=== PATIENT | female | born 1945 | race Two or more races ===

== ENCOUNTER 2016-07-24 09:09 | Day surgery (SDC) | payer OTHER ==
[~2016-07-24 09:09] MED LIST: POVIDONE-IODINE OINTMENT 10% - 28.4 GM TUBE TP ONE
[2016-07-24] MEDS ORDERED: HEPARIN NA (PORCINE) 5,000 UNITS/ML 1ML VIAL ONE ×2 (09:53→12:08)
[2016-07-24] MEDS ORDERED: LIDOCAINE HCL 1%, 10 MG/ML (20ML VIAL) ONE (09:54)
[2016-07-24] MEDS ORDERED: ROPIVACAINE HCL 0.5% 30ML VIAL ONE (11:02)
[2016-07-24] MEDS ORDERED: MIDAZOLAM HCL 2 MG/2 ML SINGLE DOSE VIAL ONE ×2 (11:04)
[2016-07-24] MEDS ORDERED: PROPOFOL 20 ML ONE ×2 (12:08→13:34)
[2016-07-24] MEDS ORDERED: LIDOCAINE HCL 2% (20ML MULTI-DOSE VIAL) NR ONE (12:09)
[2016-07-24] MEDS ORDERED: ceFAZolin SODIUM 1 GM VIAL ONE (12:17)
[2016-07-24] MEDS ORDERED: ceFAZolin SODIUM 1 GM VIAL IVPB ONE (12:20)
[2016-07-24] MEDS ORDERED: LIDOCAINE HCL 1%, 10 MG/ML (20ML VIAL) IJ ONE (12:21)
[2016-07-24] MEDS ORDERED: POVIDONE-IODINE OINTMENT 10% - 28.4 GM TUBE ONE (12:46)
[2016-07-24] MEDS ORDERED: POVIDONE-IODINE OINTMENT 10% - 28.4 GM TUBE TP ONE (14:10)
[2016-07-24] MEDS ORDERED: ONDANSETRON 4 MG/2 ML VIAL IVPUSH PRN (14:30)
--- NOTE | 2016-07-24 14:32 | OP ---
Operative Note - Note: Operative Date: 07/24/16 Pre-Operative Diagnosis: ESRD Operation: Creation of left cephalic vein fistula Post-Operative Diagnosis: Same as Pre-op Surgeon: Carlos Stafford Anesthesia: Fractional Estimated Blood Loss (mls): 50 Operative Report Dictated: Yes
--- NOTE | 2016-07-24 14:35 | HP ---
Admitting History and Physical - Admission Chief Complaint: ESRD - Past Medical History REGISTERED NURSE MATERNITY: Yes: Syncope Cardiovascular: Yes: CHF, HTN Renal/: Yes: Renal Failure Heme/Onc: Yes: Anemia Endocrine: Yes: Hypothyroidism - Smoking History Smoking history: Never smoked Have you smoked in the past 12 months: No Aproximately how many cigarettes per day: 0 - Alcohol/Substance Use Hx Alcohol Use: No - Social History ADL: Independent History of Recent Travel: No Home Medications - Allergies Allergies/Adverse Reactions: Allergies Allergy/AdvReac Type Severity Reaction Status Date / Time No Known Allergies Allergy Verified 07/24/16 10:13 - Home Medications Home Medications: Ambulatory Orders Calcium Acetate [Phoslo -] 1,334 mg PO TIDCM #60 capsule 06/03/16 Carvedilol [Coreg -] 12.5 mg PO BID #30 tablet 06/03/16 Levothyroxine [Synthroid -] 125 mcg PO DAILY@0700 #30 tablet 06/03/16 Nifedipine ER [Procardia XL -] 90 mg PO DAILY #60 tab.er.24 06/03/16 Physical Examination Vital Signs: Vital Signs Temperature 97.7 F 07/24/16 10:15 Pulse Rate 75 07/24/16 10:15 Respiratory Rate 18 07/24/16 10:15 Blood Pressure 175/82 07/24/16 10:15 O2 Sat by Pulse Oximetry (%) 98 07/24/16 10:15 Constitutional: Yes: Well Nourished Eyes: Yes: WNL HENT: Yes: WNL Neck: Yes: WNL Cardiovascular: Yes: WNL Respiratory: Yes: WNL Gastrointestinal: Yes: WNL Labs: CBC, BMP 07/24/16 09:32 Assessment/Plan ESRD 1. For avf creation today
--- NOTE | 2016-07-24 14:48 | SURG ---
Surgery Pilling Machine Operator Note Pilling Machine Operator: Zara Ziegler PA-C Date of Service: 07/24/16 Diagnosis: ESRD Procedure: Creation of left cephalic vein AV fistula I was present for the entirety of the operative procedure. For further detail, please refer to operative report. Visit type - Case Type Case Type: Scheduled Admission - New patient This patient is new to me today: Yes Date on this admission: 07/24/16
[2016-07-24 15:14] VITALS: TEMP 98.6
[2016-07-24 16:39] VITALS: BP 152/79; PULSE 78
== END 2016-07-24 16:39 | disposition home or self-care (01) ==
LOC: JASU-SURG 09:09
PROVIDERS: ATTEND Surgery Vascular Surgery
PROC: 03180ZD Bypass Left Brachial Artery to Upper Arm Vein, Open Approach (ICD-10-PCS; principal; 2016-07-24 12:00)
DX: I12.0 Hypertensive chronic kidney disease with stage 5 chronic kidney disease or end stage renal disease (principal); N18.6 End stage renal disease; Z99.2 Dependence on renal dialysis
CPT/HCPCS: 36415; 84132; 94760; J1644

== ENCOUNTER 2016-07-31 08:42 | Day surgery (SDC) | payer OTHER ==
--- NOTE | 2016-07-31 09:37 | PDOC ---
History of Present Illness - General History Source: Patient, Old Records Exam Limitations: No Limitations - History of Present Illness Initial Comments: 07/31/16 09:37 The patient is a 70-year-old woman, with a significant past medical history of hypertension, hypercholesterolemia, congestive heart failure, anemia, hypothyroidism, renal failure, chronic kidney disease, end stage renal disease ( on hemodialysis q. TRS) and colon Ca who presents to the emergency department for further evaluation of her displaced catheter. The patient had a right permacath placed in 06/21 and recent left cephalic vein fistula placed on 2016 by Vascular Surgeon, Dr. Ellyn Stafford. Patient denies any pain. She stated she was able to receive her full hemodialysis yesterday without complications. Patient woke up this morning, in her usual state of health, when she had breakfast at approximately 06:30 AM (cup of coffee with bread) and noticed that her right permacath was accidentally displaced, thus presenting to the ER. Patient denies any fever, chills, generalized weakness lightheadedness, dizziness, unsteady gait, visual changes, palpitations, headache, chest pain, abdominal pain, nausea, vomiting, diarrhea. Allergies: None Known Past Surgical History: Appendectomy. Colon Ca status post resection. Right Permacath placement (06/2016). Left cephalic vein fistula on 07/24/2016. Social History: No tobacco, ETOH and recreational drug use. Primary Care Physician: Jimbo Camara [phone] (Affiliated with [facility] ) Vascular Surgeon: Dr. Ellyn Stafford [phone] <Dasha Ho - Last Filed: 07/31/16 09:43> <Apolinar Mckeon - Last Filed: 07/31/16 10:14> - General Chief Complaint: Dialysis Shunt Problem Stated Complaint: DISPLACED CATHERER Time Seen by Provider: 07/31/16 09:00 Past History <Dasha Ho - Last Filed: 07/31/16 09:43> - Past Medical History Anemia: No Asthma: No Cancer: Yes (COLON CANCER) Cardiac Disorders: Yes CVA: No COPD: No CHF: No Dementia: No Diabetes: Yes (IDDM) Dialysis: Yes (--FRI) GI Disorders: Yes (COLON CANCER) Disorders: No HTN: Yes Hypercholesterolemia: Yes Liver Disease: No Suicide Attempt (Hx): No Seizures: No Thyroid Disease: No - Surgical History Abdominal Surgery: Yes (COLON RESECTION/ COLOSTOMY) Appendectomy: Yes Cardiac Surgery: No Cholecystectomy: Yes Lung Surgery: No Neurologic Surgery: No Orthopedic Surgery: No - Immunization History Immunization Up to Date: Yes - Psycho/Social/Smoking Cessation Hx Anxiety: No Suicidal Ideation: No Smoking Status: No Smoking History: Never smoked Have you smoked in the past 12 months: No Number of Cigarettes Smoked Daily: 0 Hx Alcohol Use: No Drug/Substance Use Hx: No Substance Use Type: None Hx Substance Use Treatment: No <Apolinar Mckeon - Last Filed: 07/31/16 10:14> - Past Medical History Allergies/Adverse Reactions: Allergies Allergy/AdvReac Type Severity Reaction Status Date / Time No Known Allergies Allergy Verified 07/31/16 08:47 Home Medications: Ambulatory Orders Calcium Acetate [Phoslo -] 1,334 mg PO TIDCM #60 capsule 06/03/16 Carvedilol [Coreg -] 12.5 mg PO BID #30 tablet 06/03/16 Levothyroxine [Synthroid -] 125 mcg PO DAILY@0700 #30 tablet 06/03/16 Nifedipine ER [Procardia XL -] 90 mg PO DAILY #60 tab.er.24 06/03/16 Review of Systems - Review of Systems Constitutional: No: Chills, Fever HEENTM: No: Throat Swelling Respiratory: No: Cough, Shortness of Breath Cardiac (ROS): No: Chest Pain, Edema ABD/GI: No: Nausea, Vomiting Integumentary: Yes: See HPI <Apolinar Mckeon - Last Filed: 07/31/16 10:14> *Physical Exam - Vital Signs Last Vital Signs Temp Pulse Resp BP Pulse Ox 98.2 F 99 H 20 188/86 98 07/31/16 08:43 07/31/16 08:43 07/31/16 08:43 07/31/16 08:43 07/31/16 08:43 - Physical Exam Comments: 07/31/16 09:38 GENERAL: The patient is awake, alert, and fully oriented, in no acute distress. HEAD: Normal with no signs of trauma. EYES: Pupils equal, round and reactive to light, extraocular movements intact, sclera anicteric, conjunctiva clear with no pallor. ENT: Ears normal, nares patent, oropharynx clear without exudates. Moist mucous membranes. NECK: Normal range of motion, supple without lymphadenopathy, JVD, or masses. LUNGS: Breath sounds equal, clear to auscultation bilaterally. No wheeze/ crackles. HEART: Regular rate and rhythm, normal S1 and S2 without murmur or rub. CHEST: There is an intact and fully dislodged right upper chest wall catheter site that is clean, dry without evidence of active bleeding, infection and foreign body ABDOMEN: Soft/nontender/nondistended. BS wnl. No guarding or rebound. No palpable masses. No hepatosplenomegaly. EXTREMITIES: Normal range of motion, no edema. No clubbing or cyanosis. No cords, erythema, or tenderness. NEUROLOGICAL: Cranial nerves II through XII grossly intact. Normal speech. PSYCH: Normal mood, normal affect. SKIN: Warm, Dry, normal turgor, no rashes or lesions noted. <Dasha Ho - Last Filed: 07/31/16 09:43> - Vital Signs Last Vital Signs Temp Pulse Resp BP Pulse Ox 98.2 F 99 H 20 188/86 98 07/31/16 08:43 07/31/16 08:43 07/31/16 08:43 07/31/16 08:43 07/31/16 08:43 <Apolinar Mckeon - Last Filed: 07/31/16 10:14> ED Treatment Course - LABORATORY CBC & Chemistry Diagram: 07/31/16 09:14 07/31/16 09:14 <Dasha Ho - Last Filed: 07/31/16 09:43> - LABORATORY CBC & Chemistry Diagram: 07/31/16 09:14 07/31/16 09:14 - RADIOLOGY Radiology Studies Ordered: Category Date Time Status CHEST PA & LAT [RAD] Stat Radiology 07/31/16 09:10 Taken <Apolinar Mckeon - Last Filed: 07/31/16 10:14> Medical Decision Making - Medical Decision Making 07/31/16 09:39 Overhead page to Vascular Surgeon, Dr. Ellyn Stafford 07/31/16 09:39 A call was placed to Vascular Surgeon, Dr. Ellyn Stafford at [phone]. Awaiting call back. <Dasha Ho - Last Filed: 07/31/16 09:43> - Medical Decision Making 07/31/16 09:34 A portion of this note was documented by scribe services under my direction. I have reviewed the details of the note, within reason, and agree with the documentation with the following case summary and management plan written by me. 70-year-old female end-stage renal disease recently started dialysis, had right permacath placed in 06/21 and now postop day 5 of left cephalic vein fistula, presents from [facility] after her right chest permacath was accidentally dislodged. Has no pain or bleeding or swelling, has no chest pain or shortness of breath. Had complete dialysis yesterday. Vitals as noted. Exam as noted. 70-year-old female with displaced right chest permacath, fistula has not yet matured. Will require placement of new permacath, Dr. Carlos Stafford consulted. Will check basic labs, though had full dialysis yesterday Chest x-ray to rule out any retained catheter segment Admit to ASU 07/31/16 10:13 Accepted for ASU by Dr. Stafford. Because she ate breakfast at 6:30 AM, cannot receive anesthesia until 2:30 PM. Pt NPO, awaiting labs. <Apolinar Mckeon - Last Filed: 07/31/16 10:14> *DC/Admit/Observation/Transfer - Attestations Scribe Attestion: 07/31/16 09:39 Documentation prepared by Dasha Ho, acting as medical sales representative for Apolinar Mckeon MD. <Dasha Ho - Last Filed: 07/31/16 09:43> - Discharge Dispostion Admit: Yes <Apolinar Mckeon - Last Filed: 07/31/16 10:14> Diagnosis at time of Disposition: Complication, dialysis catheter clot or failure Chronic kidney disease (CKD) Qualifiers: Chronic kidney disease stage: unspecified stage Qualified Code(s): N18.9 - Chronic kidney disease, unspecified - Discharge Dispostion Condition at time of disposition: Stable - Referrals Referrals: Jimbo Camara MD [Primary Care Provider] -
[2016-07-31 09:44] LABS: BASOPHIL 0.2 % (0-2.0); MCH 29.8 pg (25.7-33.7); MCHC 32.8 g/dl (32.0-36.0); MEAN PLT VOLUME 8.9 fl (7.5-11.1); NEUTROPHILS 73.2 % (42.8-82.8); PLATELET COUNT 109 K/MM3 (134-434); WHITE BLOOD COUNT 4.9 K/mm3 (4.0-10.0)
[2016-07-31 10:27] LABS: ALBUMIN 3.5 g/dl (3.4-5.0); BILIRUBIN,TOTAL 0.4 mg/dL (0.2-1.0); CALCIUM 7.9 mg/dL (8.5-10.1); CREATININE 4.5 mg/dL (0.55-1.02); TOT PROT 7.4 g/dl (6.4-8.2)
[2016-07-31 10:37] LABS: INR 1.01 (0.82-1.09); PROTHROMBIN TIME (PATIENT) 11.1 SEC (9.98-11.88)
[2016-07-31 10:39] LABS: ACTIVATED PTT 32.8 SECONDS (26.9-34.4)
[2016-07-31 11:32] VITALS: BMI 25.0
[2016-07-31] MEDS ORDERED: ceFAZolin SODIUM 1 GM VIAL IVPB ONE (11:41)
[2016-07-31] MEDS ORDERED: LIDOCAINE HCL 1%, 10 MG/ML (20ML VIAL) ONE (14:01)
--- NOTE | 2016-07-31 14:51 | OP ---
Operative Note - Note: Operative Date: 07/31/16 Pre-Operative Diagnosis: dislodged permacath Operation: Insertion of permacath Post-Operative Diagnosis: Same as Pre-op Surgeon: Carlos Stafford Anesthesia: Fractional Estimated Blood Loss (mls): 10 Operative Report Dictated: Yes
[2016-07-31 16:19] VITALS: TEMP 98.2
[2016-07-31 18:29] VITALS: BP 170/80; PULSE 88
--- NOTE | 2016-08-01 11:55 | OP ---
DATE OF OPERATION: 07/31/2016 PREOPERATIVE DIAGNOSIS: Dislodged PermCath. POSTOPERATIVE DIAGNOSIS: Dislodged PermCath. PROCEDURE: Insertion of PermCath. SURGEON: Carlos Yip DO ANESTHESIA: Fractional. BLOOD LOSS: 5 mL. INDICATIONS: The patient is a 70-year-old female who had her PermCath dislodged for her right internal jugular vein this morning at home. Her dialysis day is tomorrow, and she decided to come into the ER. The patient was then brought up to the operating room and patient was consented for the procedure understanding all risks, benefits, and alternatives and was then taken to the operating room. DESCRIPTION OF PROCEDURE: Once in the operating suite, she was placed on the operating table in supine position, and the area of the right neck and chest were prepped and draped in a sterile surgical manner. Then under ultrasound guidance, we were able to visualize the right internal jugular vein, and 10 mL of 0.5% lidocaine was injected. We then took our micropuncture needle and under guidance punctured the right internal jugular vein, and a micropuncture wire was inserted and a micropuncture sheath was inserted. We then placed a 0.035 floppy guidewire under fluoroscopy. We then injected 10 mL of 0.5% lidocaine above and below the clavicle. We then took an 11-blade and made a 1-cm incision at the puncture site. We then took a 15-blade and made a 1-cm incision below the clavicle. We then tunneled the PermCath up to the puncture site. We then went ahead and placed our breakaway sheath over the guidewire into the vein under fluoroscopy, and the cannula and guidewire were removed. The catheter was then placed inside the sheath. The sheath was broken away as the catheter was placed inside the vein. The neck of the catheter was nice and smooth. The tip of the catheter was located right outside the right atrium. We then argenis back on each port of the catheter, and there was good flow. Heparinized saline was injected. Then 2000 units of IV heparin was injected. We then took 4-0 Biosyn, and 3 simple sutures were placed at the puncture site. There was 4-0 Biosyn used there, 3-0 nylon was used in the catheter attached to the skin. Biopatch, Steri-Strips, 4x4s, and Tegaderms were placed. The patient tolerated the procedure with no complications. The patient was transferred to the PACU in stable condition where a chest x-ray will be obtained. CARLOS YIP DO [id number]
== END 2016-07-31 17:45 | disposition home or self-care (01) ==
LOC: JER 08:42 → JASUSAT 10:21
PROVIDERS: ATTEND Surgery Vascular Surgery
PROC: 02H633Z Insertion of Infusion Device into Right Atrium, Percutaneous Approach (ICD-10-PCS; 2016-07-31)
PROC: B214YZZ Fluoroscopy of Right Heart using Other Contrast (ICD-10-PCS; 2016-07-31)
PROC: 05PY03Z Removal of Infusion Device from Upper Vein, Open Approach (ICD-10-PCS; principal; 2016-07-31 14:30)
DX: T82.898A Other specified complication of vascular prosthetic devices, implants and grafts, initial encounter (principal); I12.0 Hypertensive chronic kidney disease with stage 5 chronic kidney disease or end stage renal disease; N18.5 Chronic kidney disease, stage 5; Z99.2 Dependence on renal dialysis
CPT/HCPCS: 36581; 77001; C1751; 36415; 71010-TC; 71020-TC; 76000-TC; 80053; 85025; 85610; 85730; 86850; 86870; 86900; 86901; 86902; 94760; 99284-25; J1644

== ENCOUNTER 2016-10-01 07:24 | Inpatient (IN) | payer OTHER ==
--- NOTE | 2016-10-01 07:30 | PDOC ---
History of Present Illness - History of Present Illness Initial Comments: 10/01/16 07:51 The pt is a 70 year old female with a significant PMH of hypertension, HDL, congestive heart failure, anemia, hypothyroidism, renal failure, chronic kidney disease, end stage renal disease (on hemodialysis, since May, her schedule is ) and colon Ca who presents to ED complaining of chest pain that started this morning. The pain was pressure like, constant, 8/10, mid chest, no radiation. EMS arrived and her chest pain subsided after NTG. The pt is currently complaining of mild chest pain, mild SOB. The pt was scheduled to have dialysis today. She denies palpitations, N/V, diarrhea, dysuria, fever, chills. <Catherine Allen - Last Filed: 10/01/16 07:56> <Zuleyma Tay - Last Filed: 10/01/16 08:26> - General Stated Complaint: SOB Time Seen by Provider: 10/01/16 07:29 Past History - Past Medical History Anemia: No Asthma: No Cancer: Yes (COLON CANCER) Cardiac Disorders: Yes CVA: No COPD: No CHF: No Dementia: No Diabetes: Yes (IDDM) Dialysis: Yes () GI Disorders: Yes (COLON CANCER) Disorders: No HTN: Yes Hypercholesterolemia: Yes Liver Disease: No Suicide Attempt (Hx): No Seizures: No Thyroid Disease: No - Surgical History Abdominal Surgery: Yes (COLON RESECTION/ COLOSTOMY) Appendectomy: Yes Cardiac Surgery: No Cholecystectomy: Yes Lung Surgery: No Neurologic Surgery: No Orthopedic Surgery: No - Immunization History Immunization Up to Date: Yes - Psycho/Social/Smoking Cessation Hx Anxiety: No Suicidal Ideation: No Smoking Status: No Smoking History: Never smoked Have you smoked in the past 12 months: No Number of Cigarettes Smoked Daily: 0 Hx Alcohol Use: No Drug/Substance Use Hx: No Substance Use Type: None Hx Substance Use Treatment: No <Catherine Allen - Last Filed: 10/01/16 07:56> <Zuleyma Tay - Last Filed: 10/01/16 08:26> - Past Medical History Allergies/Adverse Reactions: Allergies Allergy/AdvReac Type Severity Reaction Status Date / Time No Known Allergies Allergy Verified 10/01/16 07:55 Home Medications: Ambulatory Orders Calcium Acetate [Phoslo -] 1,334 mg PO TIDCM #60 capsule 06/03/16 Carvedilol [Coreg -] 12.5 mg PO BID #30 tablet 06/03/16 Levothyroxine [Synthroid -] 125 mcg PO DAILY@0700 #30 tablet 06/03/16 Nifedipine ER [Procardia XL -] 90 mg PO DAILY #60 tab.er.24 06/03/16 *Physical Exam - Vital Signs Last Vital Signs Temp Pulse Resp BP Pulse Ox 97.9 F 125 H 18 189/93 91 L 10/01/16 07:42 10/01/16 07:42 10/01/16 07:42 10/01/16 07:42 10/01/16 07:42 <Zuleyma Tay - Last Filed: 10/01/16 08:26> ED Treatment Course - LABORATORY CBC & Chemistry Diagram: 10/01/16 07:50 - RADIOLOGY Radiograph Interpretation: 10/01/16 08:26 RAD/CHEST X-RAY PORTABLE* Single view AP portable chest Shortness of breath Right subclavian double lumen central line in position with distal tip overlying the right atrium. Mild cardiomegaly with mild uncoiling calcified aortic arch with no mediastinal widening Cardiomegaly with vascular redistribution and interstitial edema consistent with congestive change in the lungs. Interstitial edema is seen IMPRESSION: Vascular congestive changes in the lungs identified. No large pleural effusions. No signs of pneumonia. Reported By: Meliton Valero MD 10/01/16 0822 <Zuleyma Tay - Last Filed: 10/01/16 08:26>
[2016-10-01 07:54] VITALS: BMI 24.4
--- NOTE | 2016-10-01 08:08 | PDOC ---
History of Present Illness <Zuleyma Tay - Last Filed: 10/01/16 10:07> - History of Present Illness Initial Comments: 10/01/16 08:04 Patient seen immediately on arrival, documentation done later 70-year-old female with a past medical history of hypertension, end-stage renal failure on dialysis Friday, and Friday, CHF, mitral regurg, who was in a May 2016 with congestive heart failure, requiring a nitroglycerin drip , and BiPAP Patient states that she's been having chest pain off and on all night, worse last night, less this morning, associated with shortness of breath She went to dialysis today, told them she was having chest pain, and they sent her to the emergency department, she did not have her dialysis this morning She is complaining of more severe shortness of breath She denies any recent intercurrent illness No further history is available at this time <Azeb Queen - Last Filed: 10/01/16 22:28> - General Chief Complaint: Shortness of Breath Stated Complaint: SOB Time Seen by Provider: 10/01/16 07:29 Past History <Zuleyma Tay - Last Filed: 10/01/16 10:07> - Past Medical History Anemia: No Asthma: No Cancer: Yes (COLON CANCER) Cardiac Disorders: Yes CVA: No COPD: No CHF: No Dementia: No Diabetes: Yes (IDDM) Dialysis: Yes () GI Disorders: Yes (COLON CANCER) Disorders: No HTN: Yes Hypercholesterolemia: Yes Liver Disease: No Suicide Attempt (Hx): No Seizures: No Thyroid Disease: No - Surgical History Abdominal Surgery: Yes (COLON RESECTION/ COLOSTOMY) Appendectomy: Yes Cardiac Surgery: No Cholecystectomy: Yes Lung Surgery: No Neurologic Surgery: No Orthopedic Surgery: No - Immunization History Immunization Up to Date: Yes - Psycho/Social/Smoking Cessation Hx Anxiety: No Suicidal Ideation: No Smoking Status: No Smoking History: Never smoked Have you smoked in the past 12 months: No Number of Cigarettes Smoked Daily: 0 Hx Alcohol Use: No Drug/Substance Use Hx: No Substance Use Type: None Hx Substance Use Treatment: No <Azeb Queen - Last Filed: 10/01/16 22:28> - Past Medical History Allergies/Adverse Reactions: Allergies Allergy/AdvReac Type Severity Reaction Status Date / Time No Known Allergies Allergy Verified 10/01/16 07:55 Home Medications: Ambulatory Orders Calcium Acetate [Phoslo -] 1,334 mg PO TIDCM #60 capsule 06/03/16 Carvedilol [Coreg -] 12.5 mg PO BID #30 tablet 06/03/16 Levothyroxine [Synthroid -] 125 mcg PO DAILY@0700 #30 tablet 06/03/16 Review of Systems - Review of Systems Able to Perform ROS?: No <Azeb Queen - Last Filed: 10/01/16 22:28> *Physical Exam - Vital Signs Last Vital Signs Temp Pulse Resp BP Pulse Ox 97.9 F 108 H 20 161/77 100 10/01/16 07:42 10/01/16 08:47 10/01/16 08:47 10/01/16 08:47 10/01/16 08:47 <Zuleyma Tay - Last Filed: 10/01/16 10:07> - Vital Signs Last Vital Signs Temp Pulse Resp BP Pulse Ox 97.9 F 125 H 18 189/93 91 L 10/01/16 07:42 10/01/16 07:42 10/01/16 07:42 10/01/16 07:42 10/01/16 07:42 - Physical Exam Comments: 10/01/16 08:06 Physical exam Last Vital Signs Temp Pulse Resp BP Pulse Ox 97.9 F 125 H 18 189/93 91 L 10/01/16 07:42 10/01/16 07:42 10/01/16 07:42 10/01/16 07:42 10/01/16 07:42 GENERAL: The patient is awake, alert, and fully oriented, and in no apparent distress. HEAD: Normal with no signs of trauma. EYES: sclera anicteric, conjunctiva are normal. ENT: oropharynx clear without exudates. Moist mucous membranes. NECK: Normal range of motion, supple without lymphadenopathy, JVD, or masses. LUNGS: There are rales care home up bilaterally HEART: Tachycardic, with a one out of 6 murmur ABDOMEN: Soft, nontender, normoactive bowel sounds. No guarding, no rebound. No masses appreciated. EXTREMITIES: Pedal edema NEUROLOGICAL: Cranial nerves II through XII grossly intact. Normal speech, normal gait. PSYCH: Normal mood, normal affect. SKIN: Warm, Dry, normal turgor, no rashes or lesions noted. <Azeb Queen - Last Filed: 10/01/16 22:28> ED Treatment Course - LABORATORY CBC & Chemistry Diagram: 10/01/16 07:50 10/01/16 07:50 - ADDITIONAL ORDERS Additional order review: 10/01/16 07:50 RBC 3.73 MCV 92.1 MCHC 33.0 RDW 13.6 MPV 8.8 - RADIOLOGY Radiograph Interpretation: 10/01/16 09:23 RAD/CHEST X-RAY PORTABLE* Single view AP portable chest Shortness of breath Right subclavian double lumen central line in position with distal tip overlying the right atrium. Mild cardiomegaly with mild uncoiling calcified aortic arch with no mediastinal widening Cardiomegaly with vascular redistribution and interstitial edema consistent with congestive change in the lungs. Interstitial edema is seen IMPRESSION: Vascular congestive changes in the lungs identified. No large pleural effusions. No signs of pneumonia. Reported By: Meliton Valero MD 10/01/16 08 <Zuleyma Tay - Last Filed: 10/01/16 10:07> - LABORATORY CBC & Chemistry Diagram: 10/01/16 07:50 10/01/16 07:50 - RADIOLOGY Radiology Studies Ordered: Category Date Time Status CHEST X-RAY PORTABLE* [RAD] Stat Radiology 10/01/16 08:01 Ordered <Azeb Queen - Last Filed: 10/01/16 22:28> Medical Decision Making - Medical Decision Making 10/01/16 10:[address] Bernardo at 0936, awaiting call back. Dr. Scott called back at 10:01, patient's case was discussed. <Zuleyma Tay - Last Filed: 10/01/16 10:07> - Critical Care Time Total Critical Care Time (minutes): 30 Critical Care Statement: The care of this patient involved high complexity decision making to prevent further life threatening deterioration of the patient 's condition and/or to evalute & treat vital organ system(s) failure or risk of failure. - Medical Decision Making 10/01/16 08:07 Patient with chest pain, and fluid overload, and congestive heart failure, who is due for dialysis this morning, but was sent to the emergency department due to the chest pain Will start with nitroglycerin drip Trying to find out if patient is on any blood thinners at this time before I give aspirin EKG Sinus tachycardia 121, left axis deviation -14 Normal AV and IV conduction time QTC 41 There is poor R wave across the anterior precordium There is lateral ischemic changes There are diffuse nonspecific ST-T wave abnormalities When compared to the EKG of 07/22/16 The EKG abnormalities on today's EKG are similar to the abnormalities on the prior EKG, except for the sinus tachycardia is present today 10/01/16 09:02 Chest x-ray Vascular congestive changes in the lungs No large pleural effusions or signs of pneumonia Laboratory Results - last 24 hr 10/01/16 07:50 WBC 10.1 H D RBC 3.73 Hgb 11.3 Hct 34.4 MCV 92.1 MCHC 33.0 RDW 13.6 Plt Count 112 L MPV 8.8 10/01/16 09:13 Case discussed with hospitalist-Dr Garcia -will admit ICU Remainder of labwork pending at this time, patient much more comfortable right now and chest pain gone Vital Signs - 24 hr 10/01/16 10/01/16 10/01/16 07:31 07:42 08:47 Temperature 97.9 F 97.9 F Pulse Rate 125 H Pulse Rate [ 125 H 108 H Both] Respiratory 18 18 20 Rate Blood Pressure 189/93 Blood Pressure 189/93 161/77 [Right] O2 Sat by Pulse 91 L 91 L 100 Oximetry (%) 10/01/16 09:39 Laboratory Results - last 24 hr 10/01/16 10/01/16 10/01/16 07:50 07:50 07:50 WBC 10.1 H D RBC 3.73 Hgb 11.3 Hct 34.4 MCV 92.1 MCHC 33.0 RDW 13.6 Plt Count 112 L MPV 8.8 Sodium 140 Potassium 5.9 H D Chloride 105 Carbon Dioxide 21 Anion Gap 14 BUN 68 H D Creatinine 6.6 H D Creat Clearance w eGFR 6.19 Random Glucose 148 H D Calcium 8.0 L Total Bilirubin 0.5 D AST 17 ALT 16 Alkaline Phosphatase 178 H Creatine Kinase 83 Troponin I 0.02 Total Protein 7.2 Albumin 3.5 10/01/16 10:04 Case and all results discussed with Dr. Scott-will see patient in consultation-patient is pain-free at this time on a nitroglycerin drip, and breathing better on the nitroglycerin drip K 5.9 - will be hemodialyzed urgently today <Azeb Queen - Last Filed: 10/01/16 22:28> *DC/Admit/Observation/Transfer <Zuleyma Tay - Last Filed: 10/01/16 10:07> - Discharge Dispostion Admit: Yes <Azeb Queen - Last Filed: 10/01/16 22:28> Diagnosis at time of Disposition: Acute on chronic systolic (congestive) heart failure, Acute on chronic renal failure, Chest pain, Fluid overload, Hyperkalemia - Referrals
[2016-10-01] MEDS ORDERED: NITROGLYCERIN 25MG/D5W 250ML 250 ML IVPB ONE (08:11)
[2016-10-01] MEDS ORDERED: NITROGLYCERIN 25MG/D5W 250ML 250 ML IVPB SCH (08:15)
[2016-10-01 08:23] LABS: MCH 30.4 pg (25.7-33.7); MEAN CELL VOLUME 92.1 fl (80-96); MEAN PLT VOLUME 8.8 fl (7.5-11.1); PLATELET COUNT 112 K/MM3 (134-434); RDW 13.6 % (11.6-15.6); WHITE BLOOD COUNT 10.1 K/mm3 (4.0-10.0)
[2016-10-01 09:26] LABS: ALBUMIN 3.5 g/dl (3.4-5.0); BILIRUBIN,TOTAL 0.5 mg/dL (0.2-1.0); CREATININE 6.6 mg/dL (0.55-1.02); TOT PROT 7.2 g/dl (6.4-8.2)
[2016-10-01 09:30] LABS: TROPONIN I 0.02 ng/ml (0.00-0.05)
--- NOTE | 2016-10-01 10:05 | CON.CARD ---
Consult Consult Specialty:: cardiology Reason for Consultation:: CHF; hx mod-severe systolic LV dysfunction - History of Present Illness Chief Complaint: pt was very short of breath and had chest tightness last night ; feels better now History of Present Illness: 70-year-old female with a past medical history of moderately severe systolic LV dysfunction, diastolic dysfunction (ECHO 05/2016), hypertension, end-stage renal failure on dialysis and Friday,mild-moderate mitral regurg, ? coronary angiogram at [facility] more than 5 years ago, who was in a May 2016 with congestive heart failure, requiring a nitroglycerin drip, and BiPAP. Patient states that she's been having chest pain off and on all night, worse last night, less this morning, associated with shortness of breath She went to dialysis today, told him she was having chest pain, and they sent her to the emergency department, she did not have her dialysis this morning She is complaining of more severe shortness of breath She denies any recent intercurrent illness No further history is available at this time - History Source History Provided By: Patient, Medical Record Limitations to Obtaining History: No Limitations - Past Medical History [employer] OFFICER: Yes: Syncope Cardio/Vascular: Yes: CHF, HTN Renal/: Yes: Renal Failure Endocrine: Yes: Hypothyroidism - Past Surgical History Additional Surgical History: AV graft; permacath - Alcohol/Substance Use Hx Alcohol Use: No - Smoking History Smoking history: Never smoked Have you smoked in the past 12 months: No Aproximately how many cigarettes per day: 0 - Social History ADL: Independent History of Recent Travel: No Home Medications - Allergies Allergies/Adverse Reactions: Allergies Allergy/AdvReac Type Severity Reaction Status Date / Time No Known Allergies Allergy Verified 10/01/16 07:55 - Home Medications Home Medications: Ambulatory Orders Calcium Acetate [Phoslo -] 1,334 mg PO TIDCM #60 capsule 06/03/16 Carvedilol [Coreg -] 12.5 mg PO BID #30 tablet 06/03/16 Levothyroxine [Synthroid -] 125 mcg PO DAILY@0700 #30 tablet 06/03/16 Family Disease History - Family Disease History Family History: Denies Review of Systems - Review of Systems Constitutional: reports: Weakness Eyes: reports: Blurred Vision HENT: reports: No Symptoms Neck: reports: No Symptoms Cardiovascular: reports: Chest Pain Respiratory: reports: SOB on Exertion Musculoskeletal: reports: Muscle Weakness Neurological: reports: Weakness Psychiatric: reports: Anxiety - Risk Factors Known Risk Factors: Yes: Age, Diabetes Mellitus, Hypercholesterolemia, Hypertension, Physical Inactivity, Other (ESRD-->hemodialysis) Vital Signs: Vital Signs Temperature 97.9 F 10/01/16 07:42 Pulse Rate 111 H 10/01/16 09:23 Respiratory Rate 18 10/01/16 09:23 Blood Pressure 162/87 10/01/16 09:23 O2 Sat by Pulse Oximetry (%) 100 10/01/16 09:23 Constitutional: Yes: Anxious Eyes: Yes: WNL HENT: Yes: WNL Neck: Yes: WNL Respiratory: Yes: Regular Gastrointestinal: Yes: Soft Renal/: No: Anuria Cardiovascular: Yes: Tachycardia JVD: Yes Carotid Bruit: No PMI: Displaced Heart Sounds: Yes: S1, S2, S4 Murmur: Yes: Systolic Murmur, Grade 2 Musculoskeletal: Yes: Muscle Weakness Extremities: Yes: Cool Edema: No Peripheral Pulses WNL: No Peripheral Pulses: 1+ Left Doralis Pedis, 1+ Right Dorsalis Pedis Integumentary: Yes: Incision (permacath right chest), Venous Stasis Changes Neurological: Yes: Alert, Oriented, Weakness Psychiatric: Yes: Alert, Oriented - Other Data Echo: Report Reviewed (05/2016: moderate-severely reduced LVEF; mild-moderate MR ; diastolic dysfunction) Ejection Fraction %: LVEF < 40 % Imaging - Results Chest X-ray: Image Reviewed (bilateral infiltrate and vascular congestion ( moderate);) EKG: Image Reviewed (sinus tachycardia; lateral STT changes; LVH) Problem List - Problems (1) Acute on chronic renal failure Code(s): N17.9 - ACUTE KIDNEY FAILURE, UNSPECIFIED N18.9 - CHRONIC KIDNEY DISEASE, UNSPECIFIED (2) Acute on chronic systolic (congestive) heart failure Assessment/Plan: Continue carvedilol. Unable to use ACEI, ARB, or spironolactone presently (hyperkalemia). Start hydralazine, and increase as tolerated (if BP decreases too much, would decrease or stop nifedipine). Start Imdur when off NTG drip. For hemodialysis. F/u BUn/Cr, electrolytes, volume status, daily weight. For ECHO (f/u LVEF; may require ICD if coronary artery status is first ascertained). Code(s): I50.23 - ACUTE ON CHRONIC SYSTOLIC (CONGESTIVE) HEART FAILURE (3) Chest pain Assessment/Plan: atypical presentation 1st TNI 0.02; EKG sinus tach with LVH, repolarization abnormalities. On NTG IV; start Imdur when off this agent. statin for hyperlipidemia. Coronary artery evaluation when stable (stress MIBI and/or coronary angiogram). F/u ECHO for LVEF; compare with 05/2016. f/u records of ?coronary angiogram done at [facility] ? 5+ years ago. May require ICD. Code(s): R07.9 - CHEST PAIN, UNSPECIFIED (4) Hyperkalemia Assessment/Plan: for hemodialysis; f/u electrolytes; f/u with skin pass operator. Code(s): E87.5 - HYPERKALEMIA (5) Hypertension associated with chronic kidney disease due to type 2 diabetes mellitus Code(s): E11.22 - TYPE 2 DIABETES MELLITUS W DIABETIC CHRONIC KIDNEY DISEASE I12.9 - HYPERTENSIVE CHRONIC KIDNEY DISEASE W STG 1-4/UNSP CHR KDNY N18.9 - CHRONIC KIDNEY DISEASE, UNSPECIFIED (6) Hypothyroidism Assessment/Plan: sinus tachycardia. on Synthroid; mildly elevated free T4; f/u with label tacker. Code(s): E03.9 - HYPOTHYROIDISM, UNSPECIFIED Qualifiers: Hypothyroidism type: unspecified Qualified Code(s): E03.9 - Hypothyroidism, unspecified
[2016-10-01] MEDS: NIFEdipine E.R. 90 MG TABLET (FP) PO SCH (10:39)
[2016-10-01] MEDS: CARVEDILOL 12.5 MG TABLET (FP) PO SCH ×2 (11:23→21:39)
[2016-10-01] MEDS: CALCIUM ACETATE 667 MG CAPSULE (FP) PO SCH ×2 (11:23→17:19)
[2016-10-01 11:30] LABS: URINE APPEARANCE SLCLOUDY; URINE BILIRUBIN NEGATIVE (NEGATIVE); URINE BLOOD NEGATIVE (NEGATIVE); URINE COLOR LTYELLOW; URINE GLUCOSE (UA) 1+ (NEGATIVE); URINE KETONE NEGATIVE (NEGATIVE); URINE NITRITE NEGATIVE (NEGATIVE); URINE UROBILINOGEN NEGATIVE E.U./dl (0.2-1.0)
[2016-10-01 11:32] LABS: URINE LEUK ESTERASE 3+ (NEGATIVE); URINE PROTEIN 2+ (NEGATIVE)
--- NOTE | 2016-10-01 11:32 | HP ---
CHIEF COMPLAINT: chest pain and SOB x 1 day PCP: HISTORY OF PRESENT ILLNESS: 70 year old female presents to ED complaining of SOB that started around 4 am , is constant and associated with mid sternal chest pain . Her symptoms get worse when she is walking . She presented for scheduled dialysis but was not able to complete it due to ongoing SOB and sent for further evaluation to the emergency department. No dizziness, no syncope no diaphoresis. Medical records are reviewed and reveal previous hospitalizations with same symptoms. ER course was notable for: (1) Initiation of Nitro drip which improved her symptoms. (2) (3) Recent Travel: PAST MEDICAL HISTORY: HTN Hypothyroidism CHF with severely reduced LV function Anemia History of colon cancer PAST SURGICAL HISTORY: colon resection appendectomy Social History: Smoking: Alcohol: Drugs: Family History: no history of premature CAD Allergies No Known Allergies Allergy (Verified 10/01/16 07:55) HOME MEDICATIONS: Home Medications Medication Instructions Recorded Calcium Acetate [Phoslo -] 1,334 mg PO TIDCM #60 capsule 06/03/16 Carvedilol [Coreg -] 12.5 mg PO BID #30 tablet 06/03/16 Levothyroxine [Synthroid -] 125 mcg PO DAILY@0700 #30 tablet 06/03/16 REVIEW OF SYSTEMS CONSTITUTIONAL: Absent: fever, chills, diaphoresis, generalized weakness, malaise, loss of appetite, weight change HEENT: Absent: rhinorrhea, nasal congestion, throat pain, throat swelling, difficulty swallowing, mouth swelling, ear pain, eye pain, visual changes CV and Respiratory per HPI GASTROINTESTINAL: Absent: abdominal pain, abdominal distension, nausea, vomiting, diarrhea, constipation, melena, hematochezia GENITOURINARY: positive urine output 2-3 times a day , HD TTS MUSCULOSKELETAL: Absent: myalgia, arthralgia, joint swelling, back pain, neck pain SKIN: Absent: rash, itching, pallor HEMATOLOGIC/IMMUNOLOGIC: Absent: easy bleeding, easy bruising, lymphadenopathy, frequent infections ENDOCRINE: Absent: unexplained weight gain, unexplained weight loss, heat intolerance, cold intolerance NEUROLOGIC: Absent: headache, focal weakness or paresthesias, dizziness, unsteady gait, seizure, mental status changes, bladder or bowel incontinence PSYCHIATRIC: Absent: anxiety, depression, suicidal or homicidal ideation, hallucinations. PHYSICAL EXAMINATION Vital Signs - 24 hr 03/28/17 03/28/17 09:23 10:11 Pulse Rate [ 111 H 102 H Both] Respiratory 18 18 Rate Blood Pressure 162/87 152/71 [Right] O2 Sat by Pulse 100 98 Oximetry (%) GENERAL: Awake, alert, and fully oriented, in no acute distress. HEAD: Normal with no signs of trauma. EYES: Pupils equal, round and reactive to light, extraocular movements intact, sclera anicteric, conjunctiva clear. No lid lag. EARS, NOSE, THROAT: Ears normal, nares patent, oropharynx clear without exudates. Moist mucous membranes. NECK: Normal range of motion, supple without lymphadenopathy, JVD, or masses. LUNGS: Breath sounds equal, clear to auscultation bilaterally. No wheezes, and no crackles. No accessory muscle use. HEART: Regular rate and rhythm, normal S1 and S2 without murmur, rub or gallop. ABDOMEN: Soft, nontender, not distended, normoactive bowel sounds, no guarding, no rebound, no masses. No hepatomegaly or splenomegaly. MUSCULOSKELETAL: Normal range of motion at all joints. No bony deformities or tenderness. No CVA tenderness. UPPER EXTREMITIES: 2+ pulses, warm, well-perfused. No cyanosis. No clubbing. No peripheral edema. LOWER EXTREMITIES: 2+ pulses, warm, well-perfused. No calf tenderness. No peripheral edema. NEUROLOGICAL: Cranial nerves II-XII intact. Normal speech. Normal gait. PSYCHIATRIC: Cooperative. Good eye contact. Appropriate mood and affect. SKIN: Warm, dry, normal turgor, no rashes or lesions noted, normal capillary refill. CXR shows mild b/l pulmonary vascular congestion Sinus tachycardia 121, left axis deviation Normal AV and IV conduction time QTC 41 There is poor R wave across the anterior precordium There is lateral ischemic changes There are diffuse nonspecific ST-T wave abnormalities When compared to the EKG of 07/22/16 The EKG abnormalities on today's EKG are similar to the abnormalities on the prior EKG, except for the sinus tachycardia is present today Abnormal Lab Results 10/01/16 10/01/16 10/01/16 07:50 07:50 10:57 WBC 10.1 H D Plt Count 112 L Potassium 5.9 H D BUN 68 H D Creatinine 6.6 H D Random Glucose 148 H D Calcium 8.0 L Alkaline Phosphatase 178 H B-Natriuretic Peptide 80298.64 H Urine Protein 2+ H Urine Glucose (UA) 1+ H Ur Leukocyte Esterase 3+ H ASSESSMENT/PLAN: 70 year old female with SOB , chest pain and ESRD 1. Chest pain and SOB - history of CHF , decreased LV function, evidence of elevated BNP and pulmonary vascular congestion . Improved after initiation of nitro drip . - cardiology evaluation - asa - telemetry monitoring - c/w current medication regimen - stat lasix 40 IV 2. ESRD - will need HD today 3. Hyperkalemia - will be corrected in HD 4. HTN - controlled 5. DVT PPX - heparin SC Visit type - Emergency Visit Emergency Visit: Yes ED Registration Date: 10/01/16 Care time: The patient presented to the Emergency Department on the above date and was hospitalized for further evaluation of their emergent condition. - New Patient This patient is new to me today: Yes Date on this admission: 10/01/16 - Critical Care Critical Care patient: No
--- NOTE | 2016-10-01 12:11 | CONSULT ---
Consult - text type - Consultation Consultation Note: Renal Consult for ESRD on HD with Volume Overload Thi is a 70 year old woman with PMHx of ESRD on HD (TTS), Hypertension, CHF (LV dysfunction) who presented wit chest pain that woke her from sleep and found to have CHF and hyperkalemia with K of 5.9. Pt is accompanied by her daughter who translated the interview. Pt developed CP and SOB this morning at 4am. Denies any N/V, diaphoresis. Last dialysis was Friday w/o any complication. Using permacath for dialysis currently. Denies any excessive salt intake. Reports adherence to all medications. Pt started on Nitro gtt in the ED with improvement of symptoms. PMhx: as above Allergies: NKDA Family Hx: NC Social Hx: no T/A/D ROS: as per HPI, all other pertinent ros negative Home Meds: Home Medications Medication Instructions Recorded Calcium Acetate [Phoslo -] 1,334 mg PO TIDCM #60 capsule 06/03/16 Carvedilol [Coreg -] 12.5 mg PO BID #30 tablet 06/03/16 Levothyroxine [Synthroid -] 125 mcg PO DAILY@0700 #30 tablet 06/03/16 Vital Signs Temperature 97.9 F 10/01/16 07:42 Pulse Rate 102 H 10/01/16 10:11 Respiratory Rate 18 10/01/16 10:11 Blood Pressure 152/71 10/01/16 10:11 O2 Sat by Pulse Oximetry (%) 98 10/01/16 10:11 Intake & Output 09/28/16 09/29/16 09/30/16 10/01/16 23:59 23:59 23:59 23:59 Weight 125 lb Gen: NAD on Nitro gtt HEENT: No JVD CVS: RRR Lungs:+ rales right lung base Abd: soft NT/ND Ext: NO edema Acess: Left ARM AVF, Right IJ tunneled HD catheter CBC, BMP 10/01/16 07:50 10/01/16 07:50 Current Medications Aspirin (Ecotrin -) 81 mg PO DAILY [facility] Calcium Acetate (Phoslo -) 1,334 mg PO TIDCM [facility] Last Admin: 10/01/16 11:23 Dose: 1,334 mg Carvedilol (Coreg -) 12.5 mg PO BID [facility] Last Admin: 10/01/16 11:23 Dose: 12.5 mg Heparin Sodium (Porcine) (Heparin -) 5,000 unit SQ BID [facility] Nitroglycerin/Dextrose (Nitroglycerin 25mg/D5w 250ml) 250 mls @ 6 mls/hr IVPB TITR [facility] PRN Reason: 10 MCG/MIN Last Admin: 10/01/16 08:40 Dose: 6 mls/hr Levothyroxine Sodium (Synthroid -) 125 mcg PO DAILY@0700 [facility] Nifedipine (Procardia Xl -) 90 mg PO DAILY [facility] Last Admin: 10/01/16 10:39 Dose: Not Given A/P 70 year old woman with PMHx of ESRD on HD (TTS), Hypertension, CHF (LV dysfunction) who presented wit chest pain that woke her from sleep and found to have CHF and hyperkalemia with K of 5.9. #ESRD on HD with volume overload For urgent HD today in Tele UF goal of 3-3.5L Dose all meds for intermittent HD Fluid restriction of 1.2L daily Low salt diet #Fluid Overoload/CHF UF as tolerated with HD Titrate Nitro gtt as per cardiology check ECHO #Hyperkalemia Will use low K bath with HD Renal diet #Thrombocytopenia Trend Plt counts no heparin with dialysis #r/o ACS Intial set of cardiac enzymes negative Cardiology follow up Tele Monitoring Thank you Will follow Romain Love DO
[2016-10-01 12:31] LABS: MAGNESIUM 2.7 mg/dL (1.8-2.4)
[2016-10-01 12:38] LABS: FREE T4 1.55 ng/dl (0.76-1.46); THYROID STIMULATING HORMONE 24.9 uIU/ml (0.358-3.74)
[2016-10-01 12:51] LABS: URINE MUCUS RARE; URINE RBC 3 /hpf (0-3); URINE WBC 15 /hpf (3-5)
--- NOTE | 2016-10-01 13:28 | EKG ---
Test Reason : Blood Pressure : / mmHG Vent. Rate : 121 BPM Atrial Rate : 121 BPM P-R Int : 146 ms QRS Dur : 082 ms QT Int : 332 ms P-R-T Axes : 042 -14 101 degrees QTc Int : 471 ms SINUS TACHYCARDIA LEFT VENTRICULAR HYPERTROPHY WITH REPOLARIZATION ABNORMALITY ABNORMAL ECG WHEN COMPARED WITH ECG OF 22-JUL-2016 10:38, VENT. RATE HAS INCREASED BY 41 BPM Confirmed by PRATIBHA NASH MD ([id number]) on 10/01/2016 1:27:29 PM Referred By: Confirmed By:PRATIBHA NASH MD
[2016-10-01] MEDS: hydrALAZINE HCL 10 MG TABLET PO SCH (21:39)
[2016-10-01] MEDS: HEPARIN NA (PORCINE) 5,000 UNITS/ML 1ML VIAL SQ SCH (21:39)
[2016-10-01 22:56] LABS: CHOLESTEROL 155 mg/dL (50-200); LDL CHOLESTEROL (ONLY SJRH) 88 mg/dL (5-100)
[2016-10-02] MEDS: LEVOTHYROXINE NA 125 MCG TABLET (FP) PO SCH (05:59)
[2016-10-02] MEDS: hydrALAZINE HCL 10 MG TABLET PO SCH ×3 (05:59→21:47)
[2016-10-02 06:50] LABS: BASOPHIL 0.2 % (0-2.0); EOSINOPHIL 0.9 % (0-4.5); MCH 29.8 pg (25.7-33.7); MEAN CELL VOLUME 90.4 fl (80-96); MEAN PLT VOLUME 8.9 fl (7.5-11.1); NEUTROPHILS 75.3 % (42.8-82.8); PLATELET COUNT 113 K/MM3 (134-434); RDW 13.5 % (11.6-15.6); WHITE BLOOD COUNT 5.5 K/mm3 (4.0-10.0)
[2016-10-02 07:09] LABS: ALBUMIN 3.2 g/dl (3.4-5.0); CALCIUM 7.9 mg/dL (8.5-10.1); CREATININE 3.8 mg/dL (0.55-1.02)
[2016-10-02 07:10] LABS: BILIRUBIN,TOTAL 0.8 mg/dL (0.2-1.0); TOT PROT 6.7 g/dl (6.4-8.2)
[2016-10-02] MEDS: CALCIUM ACETATE 667 MG CAPSULE (FP) PO SCH ×3 (08:15→18:15)
[2016-10-02] MEDS: HEPARIN NA (PORCINE) 5,000 UNITS/ML 1ML VIAL SQ SCH ×2 (09:30→21:47)
[2016-10-02] MEDS: CARVEDILOL 12.5 MG TABLET (FP) PO SCH ×2 (09:30→21:46)
[2016-10-02] MEDS: ASPIRIN COATED 81 MG TABLET.EC PO SCH (09:30)
[2016-10-02] MEDS: NIFEdipine E.R. 90 MG TABLET (FP) PO SCH (09:30)
--- NOTE | 2016-10-02 10:59 | PN ---
Progress Note, Physician History of Present Illness: 70-year-old female with a past medical history of moderately severe systolic LV dysfunction, diastolic dysfunction (ECHO 05/2016), hypertension, end-stage renal failure on dialysis and Friday,mild-moderate mitral regurg, ? coronary angiogram at [facility] more than 5 years ago, who was in a May 2016 with congestive heart failure, requiring a nitroglycerin drip, and BiPAP. Patient states that she's been having chest pain off and on all night, worse last night, less this morning, associated with shortness of breath She went to dialysis today, told him she was having chest pain, and they sent her to the emergency department, she did not have her dialysis this morning She is complaining of more severe shortness of breath She denies any recent intercurrent illness No further history is available at this time - Current Medication List Current Medications: Active Medications Aspirin (Ecotrin -) 81 mg PO DAILY [facility] Last Admin: 10/02/16 09:30 Dose: 81 mg Calcium Acetate (Phoslo -) 1,334 mg PO TIDCM [facility] Last Admin: 10/02/16 08:15 Dose: 1,334 mg Carvedilol (Coreg -) 12.5 mg PO BID [facility] Last Admin: 10/02/16 09:30 Dose: 12.5 mg Heparin Sodium (Porcine) (Heparin -) 5,000 unit SQ BID [facility] Last Admin: 10/02/16 09:30 Dose: 5,000 unit Hydralazine HCl (Apresoline -) 10 mg PO TID [facility] Last Admin: 10/02/16 05:59 Dose: 10 mg Isosorbide Dinitrate (Isordil -) 20 mg PO TID [facility] Levothyroxine Sodium (Synthroid -) 125 mcg PO DAILY@0700 [facility] Last Admin: 10/02/16 05:59 Dose: 125 mcg Nifedipine (Procardia Xl -) 90 mg PO DAILY [facility] Last Admin: 10/02/16 09:30 Dose: 90 mg - Objective Vital Signs: Vital Signs Temperature 97.9 F 10/02/16 06:00 Pulse Rate 80 10/02/16 06:00 Respiratory Rate 20 10/02/16 06:00 Blood Pressure 141/70 10/02/16 06:00 O2 Sat by Pulse Oximetry (%) 96 10/01/16 21:00 Eyes: Yes: WNL, Conjunctiva Clear, EOM Intact HENT: Yes: WNL, Atraumatic, Normocephalic Neck: Yes: WNL, Supple, Trachea Midline Cardiovascular: Yes: WNL, Regular Rate and Rhythm Respiratory: Yes: WNL, Regular, CTA Bilaterally Gastrointestinal: Yes: WNL, Normal Bowel Sounds Genitourinary: Yes: WNL Musculoskeletal: Yes: WNL Extremities: Yes: WNL Edema: No Integumentary: Yes: WNL Neurological: Yes: WNL, Alert, Oriented ...Motor Strength: WNL Psychiatric: Yes: WNL Labs: CBC, BMP 10/02/16 05:35 10/02/16 05:35 Assessment/Plan Problems (1) Acute on chronic renal failure Code(s): N17.9 - ACUTE KIDNEY FAILURE, UNSPECIFIED N18.9 - CHRONIC KIDNEY DISEASE, UNSPECIFIED (2) Acute on chronic systolic (congestive) heart failure Assessment/Plan: Continue carvedilol. Unable to use ACEI, ARB, or spironolactone presently (hyperkalemia). Start hydralazine, and increase as tolerated (if BP decreases too much, would decrease or stop nifedipine). Start Imdur For hemodialysis. F/u BUn/Cr, electrolytes, volume status, daily weight. For ECHO (f/u LVEF; may require ICD if coronary artery status is first ascertained). Code(s): I50.23 - ACUTE ON CHRONIC SYSTOLIC (CONGESTIVE) HEART FAILURE (3) Chest pain Assessment/Plan: atypical presentation 1st TNI 0.02; EKG sinus tach with LVH, repolarization abnormalities. On NTG IV; start Imdur when off this agent. statin for hyperlipidemia. Coronary artery evaluation when stable (stress MIBI and/or coronary angiogram). F/u ECHO for LVEF; compare with 05/2016. f/u records of ?coronary angiogram done at [facility] ? 5+ years ago. May require ICD. Code(s): R07.9 - CHEST PAIN, UNSPECIFIED (4) Hyperkalemia Assessment/Plan: for hemodialysis; f/u electrolytes; f/u with regional hr manager. Code(s): E87.5 - HYPERKALEMIA (5) Hypertension associated with chronic kidney disease due to type 2 diabetes mellitus Code(s): E11.22 - TYPE 2 DIABETES MELLITUS W DIABETIC CHRONIC KIDNEY DISEASE I12.9 - HYPERTENSIVE CHRONIC KIDNEY DISEASE W STG 1-4/UNSP CHR KDNY N18.9 - CHRONIC KIDNEY DISEASE, UNSPECIFIED (6) Hypothyroidism Assessment/Plan: sinus tachycardia. on Synthroid; mildly elevated free T4; f/u with supervisor wire rope fabrication. Code(s): E03.9 - HYPOTHYROIDISM, UNSPECIFIED Qualifiers: Hypothyroidism type: unspecified Qualified Code(s): E03.9 - Hypothyroidism, unspecified
[2016-10-02] MEDS: ISOSORBIDE DINITRATE 20 MG TABLET (FP) PO SCH ×2 (13:05→22:30)
--- NOTE | 2016-10-02 13:50 | PN ---
Teaching Attending Note Name of Resident: Carlee Gaspar ATTENDING PHYSICIAN STATEMENT I saw and evaluated the patient. I reviewed the resident's note and discussed the case with the resident. I agree with the resident's findings and plan as documented. SUBJECTIVE: seen and evaluated at the bedside OBJECTIVE: laying flat in no respiratory distress, very comfortable ASSESSMENT AND PLAN: 70 year old woman with HTN, Hypothyroidism, Chronic systolic and diastolic CHF, History of colon cancer admitted for pulmonary edema Pulm Edema -pt laying flat in no respiratory distress, very comfortable after dialysis last nigh -lungs completely clear on exam -discontinued NTG drip -resident discussed case with Cardiology attending and plan is for stress test but cardio attending waiting for cath report from outside hospital -cont HD as per renal attending
--- NOTE | 2016-10-02 16:18 | PN ---
Progress Note (short form) - Note Progress Note: Renal follow up for ESRD/Volume Overload Pt seen and examined at the bedside no sob or chest pain today s/p HD yesterday Vital Signs Temperature 98 F 10/02/16 10:00 Pulse Rate 76 10/02/16 10:00 Respiratory Rate 18 10/02/16 10:00 Blood Pressure 130/64 10/02/16 10:00 O2 Sat by Pulse Oximetry (%) 98 10/02/16 09:00 Intake & Output 09/29/16 09/30/16 10/01/16 10/02/16 23:59 23:59 23:59 23:59 Intake Total 446 272 Balance 446 272 Weight 125 lb 118 lb 6 oz Gen: NAD, laying flat in bed CVS: RRR Lungs: CTA Abd: soft NT/ND Ext: NO edema Acess: Left ARM AVF, Right IJ tunneled HD catheter CBC, BMP 10/02/16 05:35 10/02/16 05:35 Current Medications Aspirin (Ecotrin -) [address] [facility] Last Admin: 10/02/16 09:30 Dose: 81 mg Calcium Acetate (Phoslo -) 1,[address] [facility] Last Admin: 10/02/16 11:52 Dose: 1,334 mg Carvedilol (Coreg -) 12.[address] [facility] Last Admin: 10/02/16 09:30 Dose: 12.5 mg Heparin Sodium (Porcine) (Heparin -) 5,[address] [facility] Last Admin: 10/02/16 09:30 Dose: 5,000 unit Hydralazine HCl (Apresoline -) [address] [facility] Last Admin: 10/02/16 13:06 Dose: 10 mg Isosorbide Dinitrate (Isordil -) [address] [facility] Last Admin: 10/02/16 13:05 Dose: 20 mg Levothyroxine Sodium (Synthroid -) 125 mcg PO DAILY@0700 [facility] Last Admin: 10/02/16 05:59 Dose: 125 mcg Nifedipine (Procardia Xl -) [address] [facility] Last Admin: 10/02/16 09:30 Dose: 90 mg A/P 70 year old woman with PMHx of ESRD on HD (TTS), Hypertension, CHF (LV dysfunction) who presented wit chest pain that woke her from sleep and found to have CHF and hyperkalemia with K of 5.9. #ESRD on HD with volume overload volume status improved s/p dialysis yesterday no indication for HD today next treatment planned for tomorrow #Fluid Overoload/CHF/Chest pain Cardiology follow up Romain Love DO
--- NOTE | 2016-10-02 17:05 | PN ---
Physical Exam: SUBJECTIVE: Patient seen and examined OBJECTIVE: Vital Signs Period Temp Pulse Resp BP Sys/Tran Pulse Ox Last 24 Hr 97.6 F-98.8 F 74-95 18-20 126-155/54-87 96-98 GENERAL: The patient is awake, alert, and fully oriented, in no acute distress. HEAD: Normal with no signs of trauma. EYES: PERRL, extraocular movements intact, sclera anicteric, conjunctiva clear. No ptosis. ENT: Ears normal, nares patent, oropharynx clear without exudates, moist mucous membranes. NECK: Trachea midline, full range of motion, supple. LUNGS: Breath sounds equal, clear to auscultation bilaterally, no wheezes, no crackles, no accessory muscle use. HEART: Regular rate and rhythm, S1, S2 without murmur, rub or gallop. ABDOMEN: Soft, nontender, nondistended, normoactive bowel sounds, no guarding, no rebound, no hepatosplenomegaly, no masses. EXTREMITIES: 2+ pulses, warm, well-perfused, no edema. NEUROLOGICAL: Cranial nerves II through XII grossly intact. Normal speech, gait not observed. PSYCH: Normal mood, normal affect. SKIN: Warm, dry, normal turgor, no rashes or lesions noted Laboratory Results - last 24 hr 10/01/16 10/02/16 10/02/16 21:30 05:35 05:35 WBC 5.5 D RBC 3.40 L Hgb 10.1 L D Hct 30.8 L MCV 90.4 MCHC 33.0 RDW 13.5 Plt Count 113 L MPV 8.9 Neutrophils % 75.3 Lymphocytes % 12.9 Monocytes % 10.7 H Eosinophils % 0.9 Basophils % 0.2 Sodium 144 Potassium 4.4 D Chloride 102 Carbon Dioxide 33 H D Anion Gap 9 BUN 25 H D Creatinine 3.8 H D Creat Clearance w eGFR 11.71 Random Glucose 97 D Calcium 7.9 L Total Bilirubin 0.8 D AST 14 L ALT 12 D Alkaline Phosphatase 154 H Total Protein 6.7 Albumin 3.2 L Triglycerides 106 Cholesterol 155 Total LDL Cholesterol 88 HDL Cholesterol 47 Active Medications Generic Name Dose Route Start Last Admin Trade Name Freq PRN Reason Stop Dose Admin Aspirin 81 mg 10/02/16 10:00 10/02/16 09:30 Ecotrin - PO 81 mg DAILY FABIO Administration Calcium Acetate 1,334 mg 10/01/16 12:00 10/02/16 11:52 Phoslo - PO 1,334 mg TIDCM FABIO Administration Carvedilol 12.5 mg 10/01/16 10:00 10/02/16 09:30 Coreg - PO 12.5 mg BID FABIO Administration Heparin Sodium (Porcine) 5,000 unit 10/01/16 22:00 10/02/16 09:30 Heparin - SQ 5,000 unit BID FABIO Administration Hydralazine HCl 10 mg 10/01/16 22:00 10/02/16 13:06 Apresoline - PO 10 mg TID FABIO Administration Isosorbide Dinitrate 20 mg 10/02/16 14:00 10/02/16 13:05 Isordil - PO 20 mg TID FABIO Administration Levothyroxine Sodium 125 mcg 10/02/16 07:00 10/02/16 05:59 Synthroid - PO 125 mcg DAILY@0700 FABIO Administration Nifedipine 90 mg 10/01/16 10:00 10/02/16 09:30 Procardia Xl - PO 90 mg DAILY FABIO Administration ASSESSMENT/PLAN: 70 year old female with a PMH of HTN, CHF severe left ventricle dysfunction, ESRD (HD TTS), who presented with chest pain and sob that awoke her form sleep. CXR showing b/l infiltrates, patient admitted for acute exacerbation for CHF. #shortness of breath secondary to Acute exacerbation of chronic CHF - -condition improved s/p HD -continue carvedilol and hydralazine # Atypical chest pain -troponin trending down -Patient off NTG drip ; started on isordil 20mg po tid -call out to [facility] for records, waiting for fax -echo pending -stress test as per cardio #HTN: -cont home meds #ESRD on HD -last HD on friday -bmp #hypothyroid: -levthyroxine 125mcg po daily -TSH elevated 24.9; t41.59; do not want to increase syntroid to much to cause palpitations due to current state FEN: Fluids: none Electrolytes: wnl Diet: renal NPO after midnight if gets stress VTE prohylaxis: heparin Disposition: as per cardio for cardiac stress or not Visit type - Emergency Visit Emergency Visit: Yes ED Registration Date: 03/28/17 Care time: The patient presented to the Emergency Department on the above date and was hospitalized for further evaluation of their emergent condition. - New Patient This patient is new to me today: Yes Date on this admission: 10/02/16 - Critical Care Critical Care patient: No
[2016-10-03] MEDS: ISOSORBIDE DINITRATE 20 MG TABLET (FP) PO SCH ×3 (06:03→18:25)
[2016-10-03] MEDS: hydrALAZINE HCL 10 MG TABLET PO SCH ×3 (06:03→18:25)
[2016-10-03] MEDS: LEVOTHYROXINE NA 125 MCG TABLET (FP) PO SCH (06:04)
[2016-10-03] MEDS: CALCIUM ACETATE 667 MG CAPSULE (FP) PO SCH ×3 (08:01→18:17)
[2016-10-03 08:09] LABS: CREATININE 5.5 mg/dL (0.55-1.02)
[2016-10-03] MEDS: ASPIRIN COATED 81 MG TABLET.EC PO SCH ×2 (10:00→18:24)
[2016-10-03] MEDS: NIFEdipine E.R. 90 MG TABLET (FP) PO SCH ×2 (10:00→18:24)
[2016-10-03] MEDS: HEPARIN NA (PORCINE) 5,000 UNITS/ML 1ML VIAL SQ SCH (10:00)
[2016-10-03] MEDS: CARVEDILOL 12.5 MG TABLET (FP) PO SCH (10:00)
[2016-10-03] MEDS ORDERED: DIPYRIDAMOLE 50 MG/10 ML VIAL IVPB ONE (12:01)
--- NOTE | 2016-10-03 12:11 | PN ---
Physical Exam: SUBJECTIVE: Patient seen and examined no chest pain. 2 episodes of watery diarrhea, non bloody. Denies, [place], n, v, abdominal pain, fever, palpiations, sob. OBJECTIVE: Vital Signs Period Temp Pulse Resp BP Sys/Tran Pulse Ox Last 24 Hr 97.6 F-98.8 F 71-82 18-20 113-134/58-70 98 GENERAL: The patient is awake, alert, and fully oriented, in no acute distress. HEAD: Normal with no signs of trauma. EYES: PERRL, extraocular movements intact, sclera anicteric, conjunctiva clear. No ptosis. ENT: Ears normal, nares patent, oropharynx clear without exudates, moist mucous membranes. NECK: Trachea midline, full range of motion, supple. LUNGS: Breath sounds equal, clear to auscultation bilaterally, no wheezes, no crackles, no accessory muscle use. HEART: Regular rate and rhythm, S1, S2 without murmur, rub or gallop. ABDOMEN: Soft, nontender, nondistended, normoactive bowel sounds, no guarding, no rebound, no hepatosplenomegaly, no masses. EXTREMITIES: 2+ pulses, warm, well-perfused, no edema. NEUROLOGICAL: Cranial nerves II through XII grossly intact. Normal speech, gait not observed. PSYCH: Normal mood, normal affect. SKIN: Warm, dry, normal turgor, no rashes or lesions noted Laboratory Results - last 24 hr 10/03/16 05:10 Sodium 136 Potassium 4.9 Chloride 97 L Carbon Dioxide 28 Anion Gap 11 BUN 41 H D Creatinine 5.5 H D Random Glucose 84 Calcium 8.0 L Active Medications Generic Name Dose Route Start Last Admin Trade Name Rayq PRN Reason Stop Dose Admin Aspirin 81 mg 10/02/16 10:00 10/02/16 09:30 Ecotrin - PO 81 mg DAILY FABIO Administration Calcium Acetate 1,334 mg 10/01/16 12:00 10/03/16 08:01 Phoslo - PO Not Given TIDCM FABIO Carvedilol 12.5 mg 10/01/16 10:00 10/02/16 21:46 Coreg - PO 12.5 mg BID FABIO Administration Heparin Sodium (Porcine) 5,000 unit 10/01/16 22:00 10/02/16 21:47 Heparin - SQ 5,000 unit BID FABIO Administration Hydralazine HCl 10 mg 10/01/16 22:00 10/03/16 06:03 Apresoline - PO Not Given TID FABIO Isosorbide Dinitrate 20 mg 10/02/16 14:00 10/03/16 06:03 Isordil - PO Not Given TID [facility] Levothyroxine Sodium 125 mcg 10/02/16 07:00 10/03/16 06:04 Synthroid - PO Not Given DAILY@0700 [facility] Nifedipine 90 mg 10/01/16 10:00 10/02/16 09:30 Procardia Xl - PO 90 mg DAILY FABIO Administration ASSESSMENT/PLAN: 70 year old female with a PMH of HTN, CHF severe left ventricle dysfunction, ESRD (HD TTS), who presented with chest pain and sob that awoke her form sleep. CXR showing b/l infiltrates, patient admitted for acute exacerbation for CHF. #diarrhea: -send for c diff if diarrhea persistent #shortness of breath secondary to Acute exacerbation of chronic CHF -condition improved s/p HD # Atypical chest pain -troponin trending down -Patient off NTG drip ; started on isordil 20mg po tid -call out to [facility] for records, waiting for fax -echo showing mild to mod global hypokinesis; lv systolic fx mod reduced -stress test today no ischemia; LVEF 39% with global hypokinesis -speak to nephrology about starting and nolvia-i for cardio protection; AE is increased K , although she is on HD this can be closely monitored -continue carvedilol and hydralazine -start Lipitor 40mg qd -f/u with cardiology as outpatient #HTN: -cont home meds #ESRD on HD -HD today -bmp #hypothyroid: -levthyroxine 125mcg po daily -TSH elevated 24.9; t41.59; do not want to increase synthroid to much to cause palpitations due to current state and increased HR on admission -check free t3 FEN: Fluids: none Electrolytes: wnl Diet: renal diet VTE prohylaxis: heparin Disposition:HD; Visit type - Emergency Visit Emergency Visit: Yes ED Registration Date: 10/01/16 Care time: The patient presented to the Emergency Department on the above date and was hospitalized for further evaluation of their emergent condition. - New Patient This patient is new to me today: No - Critical Care Critical Care patient: No
[2016-10-03] MEDS ORDERED: DEXTROSE 5% IVPB ONE (14:45)
[2016-10-03] MEDS ORDERED: WATER IVPB ONE (14:45)
[2016-10-03] MEDS ORDERED: DIPYRIDAMOLE STRESS TEST IVPB ONE (14:45)
[2016-10-03] MEDS ORDERED: ATORVASTATIN CA 40 MG TABLET (FP) PO ONE (14:55)
[2016-10-03 14:57] LABS: MEAN CELL VOLUME 90.8 fl (80-96); MEAN PLT VOLUME 9.4 fl (7.5-11.1); PLATELET COUNT 130 K/MM3 (134-434); RDW 13.3 % (11.6-15.6); WHITE BLOOD COUNT 3.9 K/mm3 (4.0-10.0)
--- NOTE | 2016-10-03 14:58 | PN ---
Progress Note, Physician History of Present Illness: 70-year-old female with a past medical history of moderately severe systolic LV dysfunction, diastolic dysfunction (ECHO 05/2016), hypertension, end-stage renal failure on dialysis and Friday,mild-moderate mitral regurg, ? coronary angiogram at [facility] more than 5 years ago, who was in a May 2016 with congestive heart failure, requiring a nitroglycerin drip, and BiPAP. Patient states that she's been having chest pain off and on all night, worse last night, less this morning, associated with shortness of breath She went to dialysis today, told him she was having chest pain, and they sent her to the emergency department, she did not have her dialysis this morning She is complaining of more severe shortness of breath She denies any recent intercurrent illness No further history is available at this time - Current Medication List Current Medications: Active Medications Aspirin (Ecotrin -) 81 mg PO DAILY [facility] Last Admin: 10/03/16 10:00 Dose: Not Given Calcium Acetate (Phoslo -) 1,334 mg PO TIDCM [facility] Last Admin: 10/03/16 12:38 Dose: Not Given Carvedilol (Coreg -) 12.5 mg PO BID [facility] Last Admin: 10/03/16 10:00 Dose: Not Given Heparin Sodium (Porcine) (Heparin -) 5,000 unit SQ BID [facility] Last Admin: 10/03/16 10:00 Dose: Not Given Hydralazine HCl (Apresoline -) 10 mg PO TID [facility] Last Admin: 10/03/16 06:03 Dose: Not Given Isosorbide Dinitrate (Isordil -) 20 mg PO TID [facility] Last Admin: 10/03/16 06:03 Dose: Not Given Levothyroxine Sodium (Synthroid -) 125 mcg PO DAILY@0700 [facility] Last Admin: 10/03/16 06:04 Dose: Not Given Nifedipine (Procardia Xl -) 90 mg PO DAILY [facility] Last Admin: 10/03/16 10:00 Dose: Not Given - Objective Vital Signs: Vital Signs Temperature 98.0 F 10/03/16 13:55 Pulse Rate 73 10/03/16 14:30 Respiratory Rate 18 10/03/16 14:30 Blood Pressure 160/78 10/03/16 14:30 O2 Sat by Pulse Oximetry (%) 98 10/03/16 09:00 Labs: CBC, BMP 10/02/16 05:35 10/03/16 05:10 Problem List - Problems (1) Acute on chronic renal failure Code(s): N17.9 - ACUTE KIDNEY FAILURE, UNSPECIFIED N18.9 - CHRONIC KIDNEY DISEASE, UNSPECIFIED (2) Acute on chronic systolic (congestive) heart failure Assessment/Plan: Continue carvedilol. Unable to use ACEI, ARB, or spironolactone presently (hyperkalemia), unless cleared by dental assistant for, eg starting low-dose lisinopril. Start hydralazine, and increase as tolerated (if BP decreases too much, would decrease or stop nifedipine). Started Imdur. For hemodialysis after stress MIBI today. F/u BUn/Cr, electrolytes, volume status, daily weight. Code(s): I50.23 - ACUTE ON CHRONIC SYSTOLIC (CONGESTIVE) HEART FAILURE (3) Chest pain Assessment/Plan: Stress Persantine MIBI: no myocardial ischemia; reduced LVEF 39%. Start statin (LDL cholesterol 88 mg/dL). From a cardiac standpoint, pt may be followed as an oupatient. Code(s): R07.9 - CHEST PAIN, UNSPECIFIED (4) Hyperkalemia Assessment/Plan: for hemodialysis; f/u electrolytes; f/u with dental assistant. Code(s): E87.5 - HYPERKALEMIA (5) Hypertension associated with chronic kidney disease due to type 2 diabetes mellitus Code(s): E11.22 - TYPE 2 DIABETES MELLITUS W DIABETIC CHRONIC KIDNEY DISEASE I12.9 - HYPERTENSIVE CHRONIC KIDNEY DISEASE W STG 1-4/UNSP CHR KDNY N18.9 - CHRONIC KIDNEY DISEASE, UNSPECIFIED (6) Hypothyroidism Assessment/Plan: sinus tachycardia. on Synthroid; mildly elevated free T4; f/u with senior net c developer. Code(s): E03.9 - HYPOTHYROIDISM, UNSPECIFIED Qualifiers: Hypothyroidism type: unspecified Qualified Code(s): E03.9 - Hypothyroidism, unspecified
[2016-10-03 15:25] LABS: ALBUMIN 3.4 g/dl (3.4-5.0); CALCIUM 8.2 mg/dL (8.5-10.1); CREATININE 6.2 mg/dL (0.55-1.02)
[2016-10-03 15:44] LABS: BILIRUBIN,TOTAL 0.7 mg/dL (0.2-1.0)
[2016-10-03] MEDS ORDERED: VALSARTAN 40 MG TABLET (FP) PO SCH (17:30)
[2016-10-03 18:16] VITALS: BP 148/77; PULSE 95; TEMP 98.1
[2016-10-04 00:10] LABS: HEP B SURFACE AB Reactive (.)
[2016-10-04] MEDS ORDERED: ATORVASTATIN CA 40 MG TABLET (FP) PO SCH (22:00)
--- NOTE | 2016-10-05 07:35 | DS ---
Physical Exam: SUBJECTIVE: Patient seen and examined, no chest pain, denies sob, leg swelling. OBJECTIVE: PHYSICAL EXAM GENERAL: The patient is awake, alert, and fully oriented, in no acute distress. HEAD: Normal with no signs of trauma. EYES: PERRL, extraocular movements intact, sclera anicteric, conjunctiva clear. ENT: Ears normal, nares patent, oropharynx clear without exudates, moist mucous membranes. NECK: Trachea midline, full range of motion, supple. LUNGS: Breath sounds equal, clear to auscultation bilaterally, no wheezes, no crackles, no accessory muscle use. HEART: Regular rate and rhythm, S1, S2 without murmur, rub or gallop. ABDOMEN: Soft, nontender, nondistended, normoactive bowel sounds, no guarding, no rebound, no hepatosplenomegaly, no masses. EXTREMITIES: 2+ pulses, warm, well-perfused, no edema. NEUROLOGICAL: Cranial nerves II through XII grossly intact. Normal speech, gait not observed. PSYCH: Normal mood, normal affect. SKIN: Warm, dry, normal turgor, no rashes or lesions noted. LABS Laboratory Results - last 24 hr 10/03/16 15:15 Free T3 3.2 HOSPITAL COURSE: Date of Admission:10/01/16 Date of Discharge: 10/05/16 70 year old female with a PMH of HTN, CHF severe left ventricle dysfunction, ESRD (HD TTS), who presented with chest pain and sob that awoke her from sleep. CXR showing b/l infiltrates, patient admitted for acute exacerbation for CHF. # Atypical chest pain/ r/o ACS: stress test negative for ischemia -troponin trend down -started on NTG drip ; switched to isordil 20mg po tid -echo showing mild to mod global hypokinesis; lv systolic fx mod reduced -MIBI stress today no ischemia; LVEF 39% with global hypokinesis -continue carvedilol and hydralazine -start Lipitor 40mg qd -f/u with cardiology as outpatient I spoke with nephrology about starting an nolvia/arb for cardio protective purposes ; they suggested arb because it has a better effect compared to nolvia when patient on hemodialysis. Start diovan 40mg po daily; follow up k levels with HD. I also received records from [place] from 10/22/2011 Procedure: left heart cath, coronary angiography Conclusion: normal coronaries; no aortic stenosis,, LVEDP normal #shortness of breath secondary to Acute exacerbation of chronic CHF: resolved after HD #HTN: -cont home meds #ESRD on HD -HD today -bmp #hypothyroid: -levthyroxine 125mcg po daily -TSH elevated 24.9; t41.59; do not want to increase synthroid to much to cause palpitations due to current state and increased HR on admission -check free t3 #diarrhea: resolved -send for c diff if diarrhea persistent Minutes to complete discharge: 35 Discharge Summary Reason For Visit: CUTE CHRONIC RENAL FAILURE,CHEST PAIN Condition: Stable - Instructions Diet, Activity, Other Instructions: Discharge Home resume renal diet Resume home activity Continue dialysis Friday, and Friday Follow up with your Primary care physician Follow up with clerk cashier Dr Scott within 1 week Follow up with Renal, Dr Love within 1 week Referrals: Jimbo Camara MD [Primary Care Provider] - 1 Week Johnnie Scott MD [Staff Physician] - 1 Week Romain Love MD [Staff Physician] - 1 Week Disposition: HOME - Home Medications Comprehensive Discharge Medication List: Ambulatory Orders Calcium Acetate [Phoslo -] 1,334 mg PO TIDCM #60 capsule 06/03/16 Carvedilol [Coreg -] 12.5 mg PO BID #30 tablet 06/03/16 Levothyroxine [Synthroid -] 125 mcg PO DAILY@0700 #30 tablet 06/03/16 Aspirin Coated [Ecotrin -] 81 mg PO DAILY #30 tab 10/03/16 Atorvastatin Ca [Lipitor] 40 mg PO HS #30 tablet 10/03/16 Isosorbide Dinitrate [Isordil -] 20 mg PO TID #90 tablet 10/03/16 Nifedipine ER [Procardia XL -] 90 mg PO DAILY #30 tab 10/03/16 Valsartan [Diovan] 40 mg PO DAILY #30 tablet 10/03/16 This patient is new to me today: No Emergency Visit: Yes ED Registration Date: 10/01/16 Care time: The patient presented to the Emergency Department on the above date and was hospitalized for further evaluation of their emergent condition. Critical Care patient: No - Discharge Referral Referred to [facility] No
== END 2016-10-03 19:26 | disposition home or self-care (01) | DRG 291 ==
LOC: JER 07:24 → JERBED 09:21 → J4W 15:23
PROVIDERS: ADMIT Internal Medicine; ATTEND Internal Medicine
PROC: 5A1D60Z (ICD-10-PCS; principal; 2016-10-01)
DX: I13.2 Hypertensive heart and chronic kidney disease with heart failure and with stage 5 chronic kidney disease, or end stage renal disease (principal); N18.6 End stage renal disease; I50.23 Acute on chronic systolic (congestive) heart failure; N17.9 Acute kidney failure, unspecified; E11.22 Type 2 diabetes mellitus with diabetic chronic kidney disease; N18.9 Chronic kidney disease, unspecified; E87.5 Hyperkalemia; E03.9 Hypothyroidism, unspecified; D64.9 Anemia, unspecified; E87.79 Other fluid overload; D69.6 Thrombocytopenia, unspecified; Z99.2 Dependence on renal dialysis; A08.8 Other specified intestinal infections
CPT/HCPCS: 36415; 71010-TC; 78452-TC; 80048; 80053; 80061; 81003; 81015; 82550; 83721; 83735; 83880; 84100; 84439; 84443; 84481; 84484; 85025; 85027; 86704; 86706; 86708; 87340; 93005; 93010; 93017; 93306-TC; 99285-25; A9502; J1245; J1644

== ENCOUNTER 2016-10-11 07:51 | Day surgery (SDC) | payer OTHER ==
[2016-10-10 12:59] VITALS: BMI 24.4
--- NOTE | 2016-10-11 08:56 | EKG ---
Test Reason : Blood Pressure : / mmHG Vent. Rate : 094 BPM Atrial Rate : 094 BPM P-R Int : 144 ms QRS Dur : 080 ms QT Int : 384 ms P-R-T Axes : 055 -14 103 degrees QTc Int : 480 ms NORMAL SINUS RHYTHM POSSIBLE LEFT ATRIAL ENLARGEMENT LEFT VENTRICULAR HYPERTROPHY NONSPECIFIC T WAVE ABNORMALITY PROLONGED QT ABNORMAL ECG WHEN COMPARED WITH ECG OF 01-OCT-2016 07:31, T WAVE INVERSION MORE EVIDENT IN ANTEROLATERAL LEADS Confirmed by KASI WAKEFIELD MD ([id number]) on 10/11/2016 8:56:12 AM Referred By: Carlos Stafford Confirmed By:KASI WAKEFIELD MD
[2016-10-11] MEDS ORDERED: MIDAZOLAM HCL 2 MG/2 ML SINGLE DOSE VIAL ONE (14:44)
[2016-10-11] MEDS ORDERED: ceFAZolin SODIUM 1 GM VIAL ONE (14:55)
[2016-10-11] MEDS ORDERED: LIDOCAINE HCL/PF 2% SDV 5ML VIAL ONE (14:58)
[2016-10-11] MEDS ORDERED: PROPOFOL 20 ML ONE (14:58)
[2016-10-11] MEDS ORDERED: ceFAZolin SODIUM 1 GM VIAL IVPB ONE (15:05)
--- NOTE | 2016-10-11 15:28 | OP ---
Operative Note - Note: Operative Date: 10/11/16 Pre-Operative Diagnosis: Stenosis left avf Operation: Venogram, venoplasty left avf Post-Operative Diagnosis: Same as Pre-op Surgeon: Carlos Stafford Anesthesia: Fractional Estimated Blood Loss (mls): 10 Operative Report Dictated: Yes
--- NOTE | 2016-10-11 15:30 | HP ---
Admitting History and Physical - Admission Chief Complaint: stenosis left avf - Past Medical History RECORD LABEL INTERNSHIP: Yes: Syncope Cardiovascular: Yes: CHF, HTN Renal/: Yes: Renal Failure Heme/Onc: Yes: Anemia Endocrine: Yes: Hypothyroidism - Smoking History Smoking history: Never smoked Have you smoked in the past 12 months: No Aproximately how many cigarettes per day: 0 - Alcohol/Substance Use Hx Alcohol Use: No - Social History ADL: Independent History of Recent Travel: No Home Medications - Allergies Allergies/Adverse Reactions: Allergies Allergy/AdvReac Type Severity Reaction Status Date / Time No Known Allergies Allergy Verified 10/11/16 10:50 - Home Medications Home Medications: Ambulatory Orders Calcium Acetate [Phoslo -] 1,334 mg PO TIDCM #60 capsule 06/03/16 Carvedilol [Coreg -] 12.5 mg PO BID #30 tablet 06/03/16 Levothyroxine [Synthroid -] 125 mcg PO DAILY@0700 #30 tablet 06/03/16 Aspirin Coated [Ecotrin -] 81 mg PO DAILY #30 tab 10/03/16 Atorvastatin Ca [Lipitor] 40 mg PO HS #30 tablet 10/03/16 Isosorbide Dinitrate [Isordil -] 20 mg PO TID #90 tablet 10/03/16 Nifedipine ER [Procardia XL -] 90 mg PO DAILY #30 tab 10/03/16 Valsartan [Diovan] 40 mg PO DAILY #30 tablet 10/03/16 Physical Examination Vital Signs: Vital Signs Temperature 98 F 10/11/16 10:44 Pulse Rate 98 H 10/11/16 10:44 Respiratory Rate 18 10/11/16 10:44 Blood Pressure 144/65 10/11/16 10:44 O2 Sat by Pulse Oximetry (%) 98 10/11/16 10:57 Constitutional: Yes: Well Nourished Eyes: Yes: WNL HENT: Yes: WNL Neck: Yes: WNL Cardiovascular: Yes: WNL Respiratory: Yes: WNL Gastrointestinal: Yes: WNL Labs: CBC, BMP 10/11/16 08:10 Assessment/Plan Stenosis left avf 1. For avf venogram, venoplasty today
[2016-10-11] MEDS ORDERED: ACETAMINOPHEN 325 MG TABLET (FP) PO PRN (15:36)
[2016-10-11] MEDS ORDERED: oxyCODONE HCL 5 MG TABLET PO PRN (15:36)
[2016-10-11] MEDS ORDERED: ONDANSETRON 4 MG/2 ML VIAL IVPUSH PRN (15:36)
[2016-10-11] MEDS ORDERED: SODIUM CHLORIDE 1,000 ML IV SCH (15:45)
[2016-10-11 17:09] VITALS: TEMP 98.6
[2016-10-11 18:39] VITALS: BP 136/65; PULSE 99
--- NOTE | 2016-10-12 07:11 | OP ---
DATE OF OPERATION: 10/11/2016 PREOPERATIVE DIAGNOSIS: Stenosis left atrioventricular fistula. POSTOPERATIVE DIAGNOSIS: Stenosis left atrioventricular fistula. PROCEDURE: Venogram, venoplasty left atrioventricular fistula. INDICATIONS: The patient is a 70-year-old female who comes in to our office last week with a left AV fistula that was created back in July. The fistula looks immature and stenotic by feel and venogram. The patient was consented for the procedure understanding all risks, benefits, and alternatives then taken to the operating room. DESCRIPTION OF PROCEDURE: Once in the operating room, she was laid on the operating table in supine manner. The area of the left arm was prepped and draped in a sterile, surgical manner. We then injected 10 mL of lidocaine 1% over the proximal AV fistula above the anastomosis. We then took our micropuncture needle and punctured the AV fistula. Micropuncture wire inserted. Micropuncture sheath was inserted, and a traditional, short 6-Georgian sheath was inserted. We then gave the patient 3000 units of IV heparin. We then shot a venogram of the left AV fistula showing that the fistula was patent but had a stenotic area of about 80% in the body of the fistula. We then went ahead and placed a 0.20 floppy guidewire up into the central veins. We then used a 10 x 4 balloon and performed venoplasty of the entire AV fistula from the upper arm to the anastomosis. At this point, completion venogram showed that the fistula was patent, central veins were patent. There was no recoil in the vein. At this point, we took a 4-0 Biosyn stitch, and a [id number] stitch was placed around the sheath, and the sheath was pulled. The area was wet and dried, and Dermabond was placed. The patient tolerated the procedure with no complication. The patient was transferred to the PACU in stable condition. SOM YIP DO [id number]
== END 2016-10-11 18:35 | disposition home or self-care (01) ==
LOC: JASU-SURG 07:51
PROVIDERS: ATTEND Surgery Vascular Surgery
PROC: 057Y3ZZ Dilation of Upper Vein, Percutaneous Approach (ICD-10-PCS; principal; 2016-10-11 14:30)
DX: T82.858A Stenosis of other vascular prosthetic devices, implants and grafts, initial encounter (principal); I12.0 Hypertensive chronic kidney disease with stage 5 chronic kidney disease or end stage renal disease; N18.6 End stage renal disease; Z99.2 Dependence on renal dialysis
CPT/HCPCS: 36415; 76000-TC; 84132; 93005; 93010; 94760; J1644

== ENCOUNTER 2017-05-02 06:36 | Day surgery (SDC) | payer OTHER ==
[2017-04-29 12:30] VITALS: BMI 24.4
[2017-05-02] MEDS ORDERED: HEPARIN NA (PORCINE) 5,000 UNITS/ML 1ML VIAL ONE (07:47)
[2017-05-02] MEDS ORDERED: LIDOCAINE HCL 1%, 10 MG/ML (20ML VIAL) ONE (07:47)
[2017-05-02] MEDS ORDERED: PROPOFOL 20 ML ONE ×3 (09:11)
[2017-05-02] MEDS ORDERED: MIDAZOLAM HCL 2 MG/2 ML SINGLE DOSE VIAL ONE (09:11)
[2017-05-02] MEDS ORDERED: ceFAZolin SODIUM 1 GM VIAL ONE (09:25)
[2017-05-02] MEDS ORDERED: ceFAZolin SODIUM 1 GM VIAL IVPB ONE (09:30)
--- NOTE | 2017-05-02 10:03 | OP ---
Operative Note - Note: Operative Date: 05/02/17 Pre-Operative Diagnosis: left avf stenosis Operation: Venogram, venoplasty left avf Post-Operative Diagnosis: Same as Pre-op Surgeon: Carlos Stafford Anesthesia: Fractional Estimated Blood Loss (mls): 10 Operative Report Dictated: Yes
--- NOTE | 2017-05-02 10:06 | HP ---
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 Cardiovascular: Yes: CHF, HTN Renal/: Yes: Renal Failure Heme/Onc: Yes: Anemia Endocrine: Yes: Hypothyroidism - Smoking History Smoking history: Never smoked Have you smoked in the past 12 months: No Aproximately how many cigarettes per day: 0 - Alcohol/Substance Use Hx Alcohol Use: No - Social History ADL: Independent History of Recent Travel: No Home Medications - Allergies Allergies/Adverse Reactions: Allergies Allergy/AdvReac Type Severity Reaction Status Date / Time No Known Allergies Allergy Verified 05/02/17 07:12 - Home Medications Home Medications: Ambulatory Orders Calcium Acetate [Phoslo -] 1,334 mg PO TIDCM #60 capsule 06/03/16 Carvedilol [Coreg -] 12.5 mg PO BID #30 tablet 06/03/16 Levothyroxine [Synthroid -] 125 mcg PO DAILY@0700 #30 tablet 06/03/16 Isosorbide Dinitrate [Isordil -] 20 mg PO TID #90 tablet 10/03/16 Nifedipine ER [Procardia XL -] 90 mg PO DAILY #30 tab 10/03/16 Valsartan [Diovan] 40 mg PO DAILY #30 tablet 10/03/16 Amlodipine Besylate 10 mg PO DAILY 05/02/17 Clonidine HCl [Catapres -] 0.1 mg PO BID 05/02/17 Naproxen [Naprosyn -] 500 mg PO PRN PRN 05/02/17 Sevelamer Carbonate [Renvela] 800 mg PO TID 05/02/17 Physical Examination Vital Signs: Vital Signs Temperature 97.8 F 05/02/17 07:21 Pulse Rate 75 05/02/17 07:21 Respiratory Rate 18 05/02/17 07:21 Blood Pressure 134/68 05/02/17 07:21 O2 Sat by Pulse Oximetry (%) 100 05/02/17 07:21 Constitutional: Yes: Well Nourished Eyes: Yes: WNL HENT: Yes: WNL Neck: Yes: WNL Cardiovascular: Yes: WNL Respiratory: Yes: WNL Gastrointestinal: Yes: WNL Musculoskeletal: Yes: WNL Extremities: Yes: WNL Edema: No Labs: CBC, BMP 05/02/17 06:56 Assessment/Plan Left avf with stenosis 1. For venogram today
[2017-05-02 10:11] VITALS: TEMP 97.6
[2017-05-02 12:25] VITALS: BP 125/64; PULSE 70
--- NOTE | 2017-05-04 19:39 | OP ---
DATE OF OPERATION: 05/02/2017 PREOPERATIVE DIAGNOSIS: Stenosis, left arteriovenous fistula. POSTOPERATIVE DIAGNOSIS: Stenosis, left arteriovenous fistula. PROCEDURE: Venogram, venoplasty, left arteriovenous fistula. SURGEON: Carlos Yip DO ANESTHESIA: Fractional. BLOOD LOSS: 5 mL. The patient is a 67-year-old female who has issues in hemodialysis due to low blood flow, low volume flow in the fistula. Preoperative ultrasound showed that she has a proximal stenosis above the anastomosis, where the vein becomes very narrow. Patient was consented for the procedure, understanding all risks, benefits, alternatives. She was then taken to the operating room. Once in the operating room, she was placed on operating table in supine manner and the area of the left arm was prepped and draped in a sterile surgical manner. Under ultrasound guidance, we were able to visualize the cephalic vein in the upper arm, and 10 mL of lidocaine 1% was injected. We then took our micropuncture needle and punctured the cephalic vein. Micropuncture wire was inserted and a traditional short 6-[place] sheath was inserted. We then placed a 0.035 floppy guidewire down through the narrow portion of the fistula and across the anastomosis and into the artery. We then went ahead and used a 6 x 8 balloon and performed venoplasty of the anastomosis and the proximal AV fistula. Completion venogram now showed that the fistula was patent, there was a good thrill in the AV fistula, and was not pulsatile any longer. The vein was adequately dilated with no recoil. At this point, we decided no more intervention was needed. Using a 4-0 Biosyn stitch, we placed a [id number] stitch around the sheath and the sheath was pulled. The area was wet and dried and Dermabond was placed. The patient tolerated the procedure, no complication. Patient transferred back in stable condition. CARLOS YIP DO [employer]ESSING SUPERVISOR/[id number]
== END 2017-05-02 13:35 | disposition home or self-care (01) ==
LOC: JASU-SURG 06:36
PROVIDERS: ATTEND Surgery Vascular Surgery
PROC: 057F3ZZ Dilation of Left Cephalic Vein, Percutaneous Approach (ICD-10-PCS; principal; 2017-05-02 10:30)
DX: T82.858A Stenosis of other vascular prosthetic devices, implants and grafts, initial encounter (principal)
CPT/HCPCS: 36415; 76000-TC; 84132; J1644

== ENCOUNTER 2021-06-11 11:09 | Inpatient (IN) | payer OTHER ==
[2021-06-11 12:30] VITALS: BMI 18.6
[2021-06-11] MEDS ORDERED: LACTATED RINGERS SOLUTION 1000 ML INFUS.BAG IV ONE (14:28)
[2021-06-11 14:47] LABS: HEMATOCRIT 16.8 % (32.4-45.2); MCH 27.6 pg (25.7-33.7); MCHC 31.9 g/dl (32.0-36.0); MEAN CELL VOLUME 86.6 fl (80-96); MEAN PLT VOLUME 9.2 fl (7.5-11.1); PLATELET COUNT 61 10^3/uL (134-434); RBC 1.94 M/mm3 (3.60-5.2); RDW 17.1 % (11.6-15.6); WHITE BLOOD COUNT 22.1 K/mm3 (4.0-10.0)
[2021-06-11 15:07] LABS: CHLORIDE 104 mmol/L (98-107); HEMOGLOBIN 5.4 GM/dL (10.7-15.3); SODIUM 137 mmol/L (136-145)
[2021-06-11 15:12] LABS: ALBUMIN 2.4 g/dl (3.4-5.0); ANION GAP 10 MMOL/L (8-16); BLOOD UREA NITROGEN 59.4 mg/dL (7-18); CALCIUM 9.5 mg/dL (8.5-10.1); CO2 23 mmol/L (21-32); LIPASE 279 U/L (73-393)
[2021-06-11 15:15] LABS: CREATININE 1.2 mg/dL (0.55-1.3); SGOT/AST 285 U/L (15-37); SGPT/ALT 68 U/L (13-61)
[2021-06-11 15:17] LABS: BILIRUBIN,TOTAL 1.2 mg/dL (0.2-1); TOT PROT 5.8 g/dl (6.4-8.2)
[2021-06-11 15:18] LABS: ALK PHOS 842 U/L (45-117)
[2021-06-11 15:31] LABS: ANISOCYTOSIS 2+; MACROCYTOSIS 1+; OVALOCYTE 1+; PLATELET ESTIMATE DECREASED
[2021-06-11 15:41] LABS: GLUCOSE,RANDOM 414 mg/dL (74-106)
[2021-06-11] MEDS ORDERED: INSULIN REGULAR HUMAN 100 UNITS/ML *VIAL SQ ONE (15:52)
[2021-06-11] MEDS ORDERED: INSULIN REGULAR HUMAN 100 UNITS/ML *VIAL ONE (17:35)
[2021-06-11 17:46] LABS: INR 1.1 (0.83-1.09); PROTHROMBIN TIME (PATIENT) 12.9 SEC (9.7-13.0)
[2021-06-11 17:48] LABS: ACTIVATED PTT 23.4 SECONDS (25.2-36.5)
[2021-06-11] MEDS ORDERED: PROTAMINE SULFATE 50 MG/5 ML VIAL IVPUSH ONE (18:05)
[2021-06-11] MEDS ORDERED: PANTOPRAZOLE SODIUM 40 MG VIAL IVPUSH ONE (19:59)
[2021-06-11] MEDS ORDERED: PANTOPRAZOLE SODIUM 40 MG VIAL ONE (20:19)
[2021-06-11 20:48] LABS: HEMATOCRIT 16.6 % (32.4-45.2); MCH 27.8 pg (25.7-33.7); MCHC 32.1 g/dl (32.0-36.0); MEAN CELL VOLUME 86.7 fl (80-96); MEAN PLT VOLUME 9.2 fl (7.5-11.1); PLATELET COUNT 61 10^3/uL (134-434); RBC 1.92 M/mm3 (3.60-5.2); WHITE BLOOD COUNT 21.7 K/mm3 (4.0-10.0)
[2021-06-11 21:11] LABS: HEMOGLOBIN 5.3 GM/dL (10.7-15.3)
[2021-06-11] MEDS ORDERED: INSULIN SLIDING SCALE (NOVOLOG) 1 VIAL SQ SCH (22:00)
[2021-06-11] MEDS ORDERED: PIPERACILLIN/TAZOB 2.25 GM 2.25 GM in DEXTROSE 5%-WATER - 50 ML IVPB SCH (22:30)
[2021-06-11 22:32] LABS: ANISOCYTOSIS 2+; MACROCYTOSIS 1+; OVALOCYTE 1+; PLATELET ESTIMATE DECREASED
[2021-06-11] MEDS ORDERED: VANCOMYCIN 1 GM in D5W (PRE-DOCKED) 1,000 MG/250 ML IVPB ONE (22:33)
[2021-06-11] MEDS ORDERED: PIPERACILLIN/TAZOB 2.25 GM 2.25 GM/50 ML BAG IVPB ONE (22:50)
[2021-06-11] MEDS ORDERED: VANCOMYCIN 750 MG in DEXTROSE 5%-WATER - 250 ML IVPB ONE (23:00)
[2021-06-11 23:44] LABS: EPI CELLS >36 /uL (0-25.1); HYALINE CASTS 5 /uL (0-3.1); PH,URINE 5.5 (5.0-8.0); URINE APPEARANCE CLOUDY; URINE BACTERIA 1832 /uL (0-1359); URINE BILIRUBIN NEGATIVE (NEGATIVE); URINE COLOR DK YELLOW; URINE GLUCOSE (UA) 2+ (NEGATIVE); URINE KETONE NEGATIVE (NEGATIVE); URINE LEUK ESTERASE TRACE (NEGATIVE); URINE NITRITE NEGATIVE (NEGATIVE); URINE PROTEIN TRACE (NEGATIVE); URINE RBC 3 /uL (0-23.9); URINE WBC 91 /uL (0-25.8)
[2021-06-12] MEDS ORDERED: MELATONIN 5 MG TABLETS PO PRN (02:37)
[2021-06-12] MEDS: SODIUM CHLORIDE 1,000 ML IV SCH (03:05)
[2021-06-12] MEDS ORDERED: PIPERACILLIN/TAZOBACTAM 2.25 GM VIAL IVPB ONE ×5 (03:32→22:21)
[2021-06-12] MEDS ORDERED: DEXTROSE 5%-WATER - 50 ML IVPB ONE ×4 (03:32→22:21)
[2021-06-12] MEDS: PIPERACILLIN/TAZOB 2.25 GM 2.25 GM in DEXTROSE 5%-WATER - 50 ML IVPB SCH ×4 (04:46→22:23)
[2021-06-12] MEDS: LEVOTHYROXINE NA 75 MCG TABLET (FP) PO SCH (06:47)
[2021-06-12] MEDS: INSULIN SLIDING SCALE (NOVOLOG) 1 VIAL SQ SCH ×4 (06:48→21:26)
[2021-06-12 06:50] LABS: HEMATOCRIT 20.8 % (32.4-45.2); MCH 29.2 pg (25.7-33.7); MCHC 33.3 g/dl (32.0-36.0); MEAN CELL VOLUME 87.6 fl (80-96); MEAN PLT VOLUME 9.2 fl (7.5-11.1); PLATELET COUNT 48 10^3/uL (134-434); RBC 2.37 M/mm3 (3.60-5.2); RDW 16.3 % (11.6-15.6); WHITE BLOOD COUNT 22.2 K/mm3 (4.0-10.0)
[2021-06-12 07:04] LABS: ANION GAP 7 MMOL/L (8-16)
[2021-06-12 07:28] LABS: HEMOGLOBIN 6.9 GM/dL (10.7-15.3)
[2021-06-12] MEDS ORDERED: PT OWN MED DRAWER 7, Y5N ONE (09:23)
[2021-06-12] MEDS: PANTOPRAZOLE SODIUM 40 MG VIAL IVPUSH SCH ×2 (09:58→21:29)
[2021-06-12] MEDS: ONDANSETRON 4 MG/2 ML VIAL IVPUSH PRN ×2 (10:02→20:46)
[2021-06-12 10:07] LABS: ALK PHOS 1449 U/L (45-117); BILIRUBIN,TOTAL 1.4 mg/dL (0.2-1); BLOOD UREA NITROGEN 47.8 mg/dL (7-18); CALCIUM 8.8 mg/dL (8.5-10.1); CHLORIDE 111 mmol/L (98-107); CO2 24 mmol/L (21-32); CREATININE 0.9 mg/dL (0.55-1.3); GLUCOSE,RANDOM 79 mg/dL (74-106); MAGNESIUM 2.3 mg/dL (1.8-2.4); PHOSPHOROUS 3.4 mg/dL (2.5-4.9); SGOT/AST 638 U/L (15-37); SGPT/ALT 96 U/L (13-61); SODIUM 142 mmol/L (136-145)
[2021-06-12] MEDS: predniSONE 5 MG TABLET (UD) PO SCH (10:40)
[2021-06-12] MEDS: TACROLIMUS ANHYDROUS 1 MG CAPSULE PO SCH ×2 (10:40→22:13)
[2021-06-12 12:22] LABS: ANISOCYTOSIS 1+; MACROCYTOSIS 0; PLATELET ESTIMATE DECREASED
[2021-06-12] MEDS ORDERED: PIPERACILLIN/TAZOB 2.25 GM 2.25 GM in DEXTROSE 5%-WATER - 50 ML IVPB SCH ×2 (21:00→22:30)
[2021-06-12 21:04] LABS: HEMATOCRIT 25.2 % (32.4-45.2); HEMOGLOBIN 8.5 GM/dL (10.7-15.3); MCH 29.4 pg (25.7-33.7); MCHC 33.8 g/dl (32.0-36.0); MEAN PLT VOLUME 9.3 fl (7.5-11.1); PLATELET COUNT 43 10^3/uL (134-434); WHITE BLOOD COUNT 16.8 K/mm3 (4.0-10.0)
[2021-06-12 21:20] LABS: BLOOD UREA NITROGEN 30.9 mg/dL (7-18)
[2021-06-12 21:21] LABS: ALBUMIN 1.9 g/dl (3.4-5.0)
[2021-06-12 21:23] LABS: CREATININE 0.9 mg/dL (0.55-1.3)
[2021-06-12 21:25] LABS: BILIRUBIN,TOTAL 1.8 mg/dL (0.2-1)
[2021-06-12 21:51] LABS: ANISOCYTOSIS 2+; MACROCYTOSIS 1+; OVALOCYTE 1+; PLATELET ESTIMATE DECREASED
[2021-06-12] MEDS: ATORVASTATIN CA 20 MG TABLET (FP) PO SCH (22:13)
[2021-06-13] MEDS: SODIUM CHLORIDE 1,000 ML IV SCH (01:41)
[2021-06-13] MEDS ORDERED: DEXTROSE 5%-WATER - 50 ML IVPB ONE ×3 (03:04→16:23)
[2021-06-13] MEDS ORDERED: PIPERACILLIN/TAZOBACTAM 2.25 GM VIAL IVPB ONE ×3 (03:04→16:23)
[2021-06-13] MEDS: PIPERACILLIN/TAZOB 2.25 GM 2.25 GM in DEXTROSE 5%-WATER - 50 ML IVPB SCH ×3 (03:29→16:29)
[2021-06-13] MEDS: LEVOTHYROXINE NA 75 MCG TABLET (FP) PO SCH (06:29)
[2021-06-13] MEDS: INSULIN SLIDING SCALE (NOVOLOG) 1 VIAL SQ SCH ×4 (06:30→21:18)
[2021-06-13 07:14] LABS: EOS % 0.1 % (0-4.5); HEMATOCRIT 23.8 % (32.4-45.2); LYMPH % 2.4 % (8-40); MCH 29.6 pg (25.7-33.7); MCHC 33.8 g/dl (32.0-36.0); MEAN CELL VOLUME 87.3 fl (80-96); MEAN PLT VOLUME 9.2 fl (7.5-11.1); MONO % 6.6 % (3.8-10.2); NEUT % 90.9 % (42.8-82.8); PLATELET COUNT 45 10^3/uL (134-434); RBC 2.72 M/mm3 (3.60-5.2); RDW 16.2 % (11.6-15.6); WHITE BLOOD COUNT 14.9 K/mm3 (4.0-10.0)
[2021-06-13 07:35] LABS: INR 1.2 (0.83-1.09); PROTHROMBIN TIME (PATIENT) 13.5 SEC (9.7-13.0)
[2021-06-13 07:41] LABS: CALCIUM 7.7 mg/dL (8.5-10.1)
[2021-06-13 07:42] LABS: ALBUMIN 1.7 g/dl (3.4-5.0); BLOOD UREA NITROGEN 26.4 mg/dL (7-18)
[2021-06-13 07:43] LABS: CREATININE 0.8 mg/dL (0.55-1.3); MAGNESIUM 1.9 mg/dL (1.8-2.4)
[2021-06-13 07:44] LABS: TOT PROT 4.6 g/dl (6.4-8.2)
[2021-06-13 07:45] LABS: BILIRUBIN,TOTAL 1.8 mg/dL (0.2-1)
[2021-06-13] MEDS ORDERED: PT OWN MED DRAWER 7, Y5N ONE ×4 (08:56→22:36)
[2021-06-13] MEDS ORDERED: METOCLOPRAMIDE HCL INJECTION 10 MG/2 ML VIAL IVPB ONE (09:45)
[2021-06-13] MEDS: TACROLIMUS ANHYDROUS 1 MG CAPSULE PO SCH ×2 (10:26→21:17)
[2021-06-13] MEDS: predniSONE 5 MG TABLET (UD) PO SCH (10:26)
[2021-06-13] MEDS: PANTOPRAZOLE SODIUM 40 MG VIAL IVPUSH SCH ×2 (10:29→21:13)
[2021-06-13] MEDS: ONDANSETRON 4 MG/2 ML VIAL IVPB SCH ×3 (13:44→21:13)
[2021-06-13] MEDS: ATORVASTATIN CA 20 MG TABLET (FP) PO SCH (21:17)
[2021-06-13] MEDS ORDERED: INSULIN (NOVOLOG) ASPART 100 UNITS/ML 10ML VIAL ONE (21:18)
[2021-06-14] MEDS: ONDANSETRON 4 MG/2 ML VIAL IVPB SCH (01:27)
[2021-06-14] MEDS ORDERED: ONDANSETRON 4 MG/2 ML VIAL IVPB PRN (02:00)
[2021-06-14] MEDS: INSULIN SLIDING SCALE (NOVOLOG) 1 VIAL SQ SCH ×2 (06:01→12:09)
[2021-06-14] MEDS: LEVOTHYROXINE NA 75 MCG TABLET (FP) PO SCH (06:01)
[2021-06-14] MEDS ORDERED: INSULIN (NOVOLOG) ASPART 100 UNITS/ML 10ML VIAL ONE (06:04)
[2021-06-14 06:56] LABS: HEMATOCRIT 22.1 % (32.4-45.2); HEMOGLOBIN 7.3 GM/dL (10.7-15.3); MCH 29.5 pg (25.7-33.7); MCHC 33.1 g/dl (32.0-36.0); MEAN PLT VOLUME 9.4 fl (7.5-11.1); PLATELET COUNT 51 10^3/uL (134-434); RBC 2.48 M/mm3 (3.60-5.2); RDW 16.8 % (11.6-15.6); WHITE BLOOD COUNT 12.8 K/mm3 (4.0-10.0)
[2021-06-14 07:19] LABS: ALBUMIN 1.5 g/dl (3.4-5.0); CALCIUM 7.7 mg/dL (8.5-10.1)
[2021-06-14 07:20] LABS: BLOOD UREA NITROGEN 36.1 mg/dL (7-18)
[2021-06-14 07:21] LABS: CREATININE 0.9 mg/dL (0.55-1.3)
[2021-06-14 07:22] LABS: BILIRUBIN,TOTAL 1.5 mg/dL (0.2-1); TOT PROT 4.5 g/dl (6.4-8.2)
[2021-06-14 08:34] LABS: ANISOCYTOSIS 2+; MACROCYTOSIS 0; PLATELET ESTIMATE DECREASED
[2021-06-14 08:52] VITALS: TEMP 98.8
[2021-06-14] MEDS: PANTOPRAZOLE SODIUM 40 MG VIAL IVPUSH SCH (10:22)
[2021-06-14] MEDS: TACROLIMUS ANHYDROUS 1 MG CAPSULE PO SCH (10:22)
[2021-06-14] MEDS: predniSONE 5 MG TABLET (UD) PO SCH (10:22)
[2021-06-14] MEDS ORDERED: METOPROLOL TARTRATE 5 MG/5 ML VIAL IVPUSH ONE (12:43)
[2021-06-14 12:50] VITALS: BP 120/56; PULSE 130
== END 2021-06-14 15:35 | disposition short-term general hospital (02) | DRG 374 ==
LOC: JER 11:09 → JERBED 19:07 → J4W 06-12 01:39
PROC: 30233N1 Transfusion of Nonautologous Red Blood Cells into Peripheral Vein, Percutaneous Approach (ICD-10-PCS; principal; 2021-06-11)
DX: C16.9 Malignant neoplasm of stomach, unspecified (principal); E43 Unspecified severe protein-calorie malnutrition; Z94.0 Kidney transplant status; R64 Cachexia; Z68.1 Body mass index [BMI] 19.9 or less, adult; C78.7 Secondary malignant neoplasm of liver and intrahepatic bile duct; D62 Acute posthemorrhagic anemia; Z79.4 Long term (current) use of insulin; E11.9 Type 2 diabetes mellitus without complications; E03.9 Hypothyroidism, unspecified; I25.10 Atherosclerotic heart disease of native coronary artery without angina pectoris; R62.7 Adult failure to thrive; D72.829 Elevated white blood cell count, unspecified; E86.1 Hypovolemia; G47.00 Insomnia, unspecified; D69.6 Thrombocytopenia, unspecified; R91.1 Solitary pulmonary nodule; R74.01 Elevation of levels of liver transaminase levels; I11.0 Hypertensive heart disease with heart failure; I50.9 Heart failure, unspecified
CPT/HCPCS: 36415; 36430; 71275-TC; 74177-TC; 80053; 80197; 81003; 82272; 82550; 82553; 82962; 83690; 83735; 84100; 84484; 85025; 85610; 85730; 86850; 86900; 86901; 86922; 87040; 87086; 93005; 93010; 99285-25; C9803; P9058; Q9967; U0003; U0005